=== PATIENT | male | born 1955 | race Caucasian/White ===

== ENCOUNTER → 2017-02-16 | Outpatient (CLI) | payer BC, OTHER ==
[2017-02-16 15:30] LABS: Blood Urea Nitrogen 17 mg/dL (9-20); Non-African American GFR(MDRD) >60 (>60 ml/min/1.73 sqM)
--- NOTE | 2017-02-16 17:48 | CT ---
EXAMINATION TYPE: CT abdomen pelvis wo/w con DATE OF EXAM: 02/16/2017 4:53 PM COMPARISON: NONE HISTORY: Episode of hematuria [address] DLP: 6866.5 mGycm Automated exposure control for dose reduction was used. TECHNIQUE: Helical acquisition of images was performed from the lung bases through the pelvis. CONTRAST: Performed with Oral Contrast and with IV Contrast, patient injected with 100 mL of Omnipaque 300. FINDINGS: LUNG BASES: There is a lung nodule at the left lung base measuring 12 mm. Is in the posterior costoph renic sulcus. LIVER/GB: Probable calcified gallstone in the gallbladder. The liver is unremarkable. PANCREAS: No significant abnormality is seen. SPLEEN: No significant abnormality is seen. ADRENALS: No significant abnormality is seen. KIDNEYS: Nonobstructive calculi present at the lower pole of the left kidney, larger measures 11 mm, smaller is approximately 3 mm. No hydronephrosis bilaterally. Suspect a right ureteral calculus is pr esent measuring 9 mm.. Punctate calcification at the lower pole of the right kidney measures only 1 t o 2 mm FREE AIR: No free air is visualized. RETROPERITONEAL ADENOPATHY: None visualized REPRODUCTIVE ORGANS: Prostate calcifications are present. URINARY BLADDER: No significant abnormality is seen. PELVIC ADENOPATHY: None visualized. OSSEOUS STRUCTURES: Degenerative disc changes, facet arthropathy and the visualized lumbar spine. BOWEL: Diverticular changes associated with the sigmoid colon. OTHER: Abdominal aorta measures 3.4 cm distally. IMPRESSION: THERE IS A MID TO DISTAL RIGHT URETERAL CALCULUS HOWEVER NO DEFINITE HYDRONEPHROSIS. BILATERAL NEPHRO LITHIASIS. ABDOMINAL AORTIC ANEURYSM, DIVERTICULOSIS. ADDITIONAL FINDINGS ABOVE.
== END | disposition home or self-care (01) ==
LOC: RADCTMAIN 14:30
PROVIDERS: ATTEND Urology
DX: N20.1 Calculus of ureter (principal); N20.0 Calculus of kidney; I71.4 Abdominal aortic aneurysm, without rupture; K57.30 Diverticulosis of large intestine without perforation or abscess without bleeding
CPT/HCPCS: 82565; 84520; 74178; 36415; Q9967

== ENCOUNTER → 2017-02-20 | Outpatient (CLI) | payer BC, OTHER ==
--- NOTE | 2017-02-20 12:43 | XR ---
Abdomen HISTORY: Hematuria Frontal view of the abdomen on [address] scan February 2017 Calcification present in the lower pole of the left kidney measures approximately 1 cm in diameter sm aller immediately adjacent calcification measures approximately 5 mm. Lower pole calculus on the righ t is not seen with certainty. Extensive hypertrophic change present in the visualized spine. Lung bas es not included on exam. IMPRESSION: Nephrolithiasis as described lower pole left kidney.
== END | disposition home or self-care (01) ==
LOC: RADXRMAIN 11:00
PROVIDERS: ATTEND Urology
DX: N20.0 Calculus of kidney (principal)
CPT/HCPCS: 74000

== ENCOUNTER → 2017-03-07 | Outpatient (CLI) | payer BC, OTHER ==
--- NOTE | 2017-03-07 13:03 | US ---
EXAMINATION TYPE: US venous doppler duplex LE RT DATE OF EXAM: 03/07/2017 12:44 PM COMPARISON: NONE CLINICAL HISTORY: RLE R60.0 Right leg edema. SIDE PERFORMED: Right TECHNIQUE: The lower extremity deep venous system is examined utilizing real time linear array sonog alix with graded compression, doppler sonography and color-flow sonography. VESSELS IMAGED: External Iliac Vein (EIV) Common Femoral Vein Deep Femoral Vein Greater Saphenous Vein * Femoral Vein Popliteal Vein Small Saphenous Vein * Proximal Calf Veins (* superficial vessels) Right Leg: Grayscale imaging shows some minimal low-level internal echoes within the anterior aspect of the femoral vein. Vein is partially compressible however there is color flow present. Preliminary report left for DrTl's office when they reopen from lunch. Grayscale, color doppler, spectral doppler imaging performed of the deep veins of the lower extremit ies. There is normal flow, compressibility, vascular waveforms bilaterally. IMPRESSION: Findings could be due to chronic deep venous thrombosis rather than acute deep venous thr ombosis. Follow-up as indicated.
== END ==
LOC: RADUSWWP 12:15
PROVIDERS: ATTEND Family Medicine
DX: R60.0 Localized edema (principal)
CPT/HCPCS: 85610

== ENCOUNTER 2017-03-17 12:22 | Inpatient (IN) | payer BC, OTHER ==
[2017-03-17] MEDS ORDERED: SODIUM CHLORIDE 0.9% 1,000 ML IV STA (14:22)
--- NOTE | 2017-03-17 14:27 | ED ---
Eye Problem HPI - General Source: patient, family, RN notes reviewed Mode of arrival: ambulatory Limitations: no limitations <Luci Loco - Last Filed: 03/17/17 19:46> <Nguyễn Looney - Last Filed: 03/17/17 20:00> - General Chief complaint: Eye Problems Stated complaint: Blurred Vision Time Seen by Provider: 03/17/17 13:47 - History of Present Illness Initial comments: Patient is a 65-year-old male presents to the emergency room for multiple complaints. Patient states that he was recently diagnosed with kidney stones. Patient states he was recently placed on Flomax and Zanoni on Monday. Patient states he woke up this morning with blurriness of vision. Patient states it feels like his eyes are dilated. Patient states he's also been slightly dizzy and short of breath. Patient denies chest pain. Patient states he is not feeling himself. Patient also states that his sugars have been very high lately. Patient does state he is diabetic and takes insulin and metformin. Patient denies nausea or vomiting. Patient denies recent change in eyeglasses or contact prescription. Patient denies headache. Patient states he takes Coumadin. patient states his last INR level was 4.2 on 03/10/17. Patient states he was advised to discontinue Coumadin for 3 days and to begin taking 6 mg daily. Patient states he began taking Coumadin again 2 days ago. (Luci Lcoo) - Related Data Home Medications Medication Instructions Recorded Confirmed Furosemide [Lasix] 80 mg PO BID 06/15/16 03/17/17 Gabapentin 400 mg PO BID 06/15/16 03/17/17 Insulin Regular, Human [NovoLIN R] See Protocol SQ TID 06/15/16 03/17/17 Lisinopril 5 mg PO DAILY 06/15/16 03/17/17 Metoprolol Tartrate [Lopressor] 100 mg PO BID 06/15/16 03/17/17 Multivitamins, Thera [Multivitamin 1 tab PO DAILY 06/15/16 03/17/17 (formulary)] Potassium Chloride [Klor-Con 20] 20 meq PO DAILY 06/15/16 03/17/17 Simvastatin 10 mg PO HS 06/15/16 03/17/17 Warfarin Sodium [Coumadin] 6 mg PO DAILY 06/15/16 03/17/17 metFORMIN HCL 1,000 mg PO BID 06/15/16 03/17/17 Cinnamon Bark [Cinnamon] 500 mg PO BID 03/17/17 03/17/17 Hydrocodone/Acetaminophen [Zanoni 1 tab PO Q6H PRN 03/17/17 03/17/17 10-325 Tablet] Insulin Glargine [Lantus] See Protocol SQ HS 03/17/17 03/17/17 Tamsulosin HCl [Flomax] 0.4 mg PO HS 03/17/17 03/17/17 Allergies Allergy/AdvReac Type Severity Reaction Status Date / Time No Known Allergies Allergy Verified 03/17/17 14:14 Review of Systems ROS Other: All systems not noted in ROS Statement are negative. <Luci Loco - Last Filed: 03/17/17 19:46> ROS Other: All systems not noted in ROS Statement are negative. <Nguyễn Looney - Last Filed: 03/17/17 20:00> ROS Statement: Those systems with pertinent positive or pertinent negative responses have been documented in the HPI. Past Medical History Past Medical History: Heart Failure, Diabetes Mellitus, Deep Vein Thrombosis ( DVT) Additional Past Medical History / Comment(s): IDDM type II, DVT R lower extremity, irregular heart rhythm, neuropathy bilateral legs/feet. kidney stones History of Any Multi-Drug Resistant Organisms: None Reported Past Surgical History: Orthopedic Surgery, Tonsillectomy Additional Past Surgical History / Comment(s): L knee arthroscopy, amputation 2nd and 3rd toe, L foot 06/22/16 Past Anesthesia/Blood Transfusion Reactions: No Reported Reaction Past Psychological History: No Psychological Hx Reported Additional Psychological History / Comment(s): Pt resides alone. He is independent. Smoking Status: Former smoker Past Alcohol Use History: Occasional Additional Past Alcohol Use History / Comment(s): Pt states he smoked from 1970- 1998 and was a 2-3 ppd smoker. HE states he drinks alcohol on occasion. Past Drug Use History: None Reported - Past Family History Father Family Medical History: COPD Additional Family Medical History / Comment(s): Father of emphysema at the age of 57 yrs. Mother Family Medical History: Diabetes Mellitus Additional Family Medical History / Comment(s): Mother at the age of 66 yrs. <Luci Loco - Last Filed: 03/17/17 19:46> General Exam Limitations: no limitations General appearance: alert, in no apparent distress Head exam: Present: atraumatic, normocephalic, normal inspection Eye exam: Present: normal appearance, PERRL, EOMI Pupils: Present: normal accommodation ENT exam: Present: normal exam Neck exam: Present: normal inspection Respiratory exam: Present: normal lung sounds bilaterally. Absent: respiratory distress Cardiovascular Exam: Present: regular rate, normal rhythm, normal heart sounds GI/Abdominal exam: Present: soft, normal bowel sounds. Absent: distended, tenderness, guarding, rebound, rigid Extremities exam: Present: normal inspection Back exam: Present: normal inspection Neurological exam: Present: alert, oriented X3, CN II-XII intact, normal gait Psychiatric exam: Present: normal affect, normal mood Skin exam: Present: warm, dry, intact, normal color. Absent: rash <Luci Loco - Last Filed: 03/17/17 19:46> <Nguyễn Looney - Last Filed: 03/17/17 20:00> - General Exam Comments Initial Comments: Sitting exam room, no acute distress. (Luci Loco) Course <Luci Loco - Last Filed: 03/17/17 19:46> <Nguyễn Looney - Last Filed: 03/17/17 20:00> Vital Signs 03/17/17 03/17/17 03/17/17 12:29 15:57 16:15 Temperature 97.9 F 95.9 F L Pulse Rate 63 97 96 Respiratory 18 15 17 Rate Blood Pressure 104/57 96/52 100/62 O2 Sat by Pulse 95 100 Oximetry 03/17/17 18:27 Temperature 96.3 F L Pulse Rate 106 H Respiratory 17 Rate Blood Pressure 105/59 O2 Sat by Pulse Oximetry - Reevaluation(s) Reevaluation #1: 03/17/17 19:59 I did personally do a [id number] evaluation the patient and did discuss the findings with him and his . Patient does demonstrate evidence of UTI. He did have a period of apparent hypotension. He does also demonstrate elevated INR. Patient be admitted for IV fluids and treatment. I did discuss the case with Dr. Ray (Nguyễn Looney) Medical Decision Making - Lab Data Result diagrams: 03/17/17 14:49 03/17/17 14:49 - Radiology Data Radiology results: report reviewed, image reviewed <Luci Loco - Last Filed: 03/17/17 19:46> - Lab Data Result diagrams: 03/17/17 14:49 03/17/17 14:49 <Nguyễn Looney - Last Filed: 03/17/17 20:00> - Medical Decision Making patient is a 61-year-old male presents emergency room for evaluation of multiple complaints. Patient's BUN/creatinine slightly more elevated from normal. Patient's INR 7.6. Patient's WBC slightly elevated. Patient's urinalysis also suspicious for urinary tract infection. ultrasound kidney show no evidence of hydronephrosis. Case discussed with Dr. Looney. Dr. Looney also evaluated patient. Dr. Looney discussed case with Dr. Ray who agreed to admit patient. Will hold Coumadin. (Luci Lcoo) - Lab Data Lab Results 03/17/17 03/17/17 03/17/17 Range/Units 14:49 14:49 14:49 WBC 17.0 H (3.8-10.6) k/uL RBC 3.96 L (4.30-5.90) m/uL Hgb 11.5 L (13.0-17.5) gm/dL Hct 36.1 L (39.0-53.0) % MCV 91.0 (80.0-100.0) fL MCH 28.9 (25.0-35.0) pg MCHC 31.7 (31.0-37.0) g/dL RDW 13.5 (11.5-15.5) % Plt Count 234 (150-450) k/uL Neutrophils % 90 % Lymphocytes % 5 % Monocytes % 3 % Eosinophils % 0 % Basophils % 0 % Neutrophils # 15.3 H (1.3-7.7) k/uL Lymphocytes # 0.8 L (1.0-4.8) k/uL Monocytes # 0.5 (0-1.0) k/uL Eosinophils # 0.0 (0-0.7) k/uL Basophils # 0.1 (0-0.2) k/uL Hypochromasia Slight PT 78.7 H (9.0-12.0) sec INR 7.6 H* (<1.1) APTT 54.0 H (22.0-30.0) sec Sodium 135 L (137-145) mmol/L Potassium 4.8 (3.5-5.1) mmol/L Chloride 98 (98-107) mmol/L Carbon Dioxide 25 (22-30) mmol/L Anion Gap 12 mmol/L BUN 45 H (9-20) mg/dL Creatinine 2.00 H (0.66-1.25) mg/dL Est GFR (MDRD) Af Amer 41 (>60 ml/min/1.73 sqM) Est GFR (MDRD) Non-Af 34 (>60 ml/min/1.73 sqM) Glucose 286 H (74-99) mg/dL POC Glucose (mg/dL) (75-99) mg/dL POC Glu Section Cutter ID Plasma Lactic Acid Joel (0.7-2.0) mmol/L Calcium 9.2 (8.4-10.2) mg/dL Magnesium 1.9 (1.6-2.3) mg/dL Total Bilirubin 0.6 (0.2-1.3) mg/dL AST 51 (17-59) U/L ALT 104 H (21-72) U/L Alkaline Phosphatase 119 (38-126) U/L Total Creatine Kinase (55-170) U/L CK-MB (CK-2) (0.0-2.4) ng/mL CK-MB (CK-2) Rel Index Troponin I (0.000-0.034) ng/mL Total Protein 7.4 (6.3-8.2) g/dL Albumin 3.4 L (3.5-5.0) g/dL Urine Color Urine Appearance (Clear) Urine pH (5.0-8.0) Ur Specific [place] (1.001-1.035) Urine Protein (Negative) Urine Glucose (UA) (Negative) Urine Ketones (Negative) Urine Blood (Negative) Urine Nitrite (Negative) Urine Bilirubin (Negative) Urine Urobilinogen (<2.0) mg/dL Ur Leukocyte Esterase (Negative) Urine RBC (0-5) /hpf Urine WBC (0-5) /hpf Urine WBC Clumps (None) /hpf Urine Bacteria (None) /hpf Hyaline Casts (0-2) /lpf Urine Mucus (None) /hpf 03/17/17 03/17/17 03/17/17 Range/Units 14:49 15:55 16:15 WBC (3.8-10.6) k/uL RBC (4.30-5.90) m/uL Hgb (13.0-17.5) gm/dL Hct (39.0-53.0) % MCV (80.0-100.0) fL MCH (25.0-35.0) pg MCHC (31.0-37.0) g/dL RDW (11.5-15.5) % Plt Count (150-450) k/uL Neutrophils % % Lymphocytes % % Monocytes % % Eosinophils % % Basophils % % Neutrophils # (1.3-7.7) k/uL Lymphocytes # (1.0-4.8) k/uL Monocytes # (0-1.0) k/uL Eosinophils # (0-0.7) k/uL Basophils # (0-0.2) k/uL Hypochromasia PT (9.0-12.0) sec INR (<1.1) APTT (22.0-30.0) sec Sodium (137-145) mmol/L Potassium (3.5-5.1) mmol/L Chloride (98-107) mmol/L Carbon Dioxide (22-30) mmol/L Anion Gap mmol/L BUN (9-20) mg/dL Creatinine (0.66-1.25) mg/dL Est GFR (MDRD) Af Amer (>60 ml/min/1.73 sqM) Est GFR (MDRD) Non-Af (>60 ml/min/1.73 sqM) Glucose (74-99) mg/dL POC Glucose (mg/dL) 297 H (75-99) mg/dL POC Glu Section Cutter ID Bowling, Mirela Plasma Lactic Acid Joel (0.7-2.0) mmol/L Calcium (8.4-10.2) mg/dL Magnesium (1.6-2.3) mg/dL Total Bilirubin (0.2-1.3) mg/dL AST (17-59) U/L ALT (21-72) U/L Alkaline Phosphatase (38-126) U/L Total Creatine Kinase 41 L (55-170) U/L CK-MB (CK-2) 1.6 (0.0-2.4) ng/mL CK-MB (CK-2) Rel Index 3.9 Troponin I <0.012 (0.000-0.034) ng/mL Total Protein (6.3-8.2) g/dL Albumin (3.5-5.0) g/dL Urine Color Yellow Urine Appearance Cloudy (Clear) Urine pH 5.5 (5.0-8.0) Ur Specific [place] 1.013 (1.001-1.035) Urine Protein 1+ H (Negative) Urine Glucose (UA) Negative (Negative) Urine Ketones Negative (Negative) Urine Blood Moderate H (Negative) Urine Nitrite Negative (Negative) Urine Bilirubin Negative (Negative) Urine Urobilinogen 2.0 (<2.0) mg/dL Ur Leukocyte Esterase Large H (Negative) Urine RBC 13 H (0-5) /hpf Urine WBC >182 H (0-5) /hpf Urine WBC Clumps Many H (None) /hpf Urine Bacteria Many H (None) /hpf Hyaline Casts 6 H (0-2) /lpf Urine Mucus Occasional H (None) /hpf 03/17/17 Range/Units 18:43 WBC (3.8-10.6) k/uL RBC (4.30-5.90) m/uL Hgb (13.0-17.5) gm/dL Hct (39.0-53.0) % MCV (80.0-100.0) fL MCH (25.0-35.0) pg MCHC (31.0-37.0) g/dL RDW (11.5-15.5) % Plt Count (150-450) k/uL Neutrophils % % Lymphocytes % % Monocytes % % Eosinophils % % Basophils % % Neutrophils # (1.3-7.7) k/uL Lymphocytes # (1.0-4.8) k/uL Monocytes # (0-1.0) k/uL Eosinophils # (0-0.7) k/uL Basophils # (0-0.2) k/uL Hypochromasia PT (9.0-12.0) sec INR (<1.1) APTT (22.0-30.0) sec Sodium (137-145) mmol/L Potassium (3.5-5.1) mmol/L Chloride (98-107) mmol/L Carbon Dioxide (22-30) mmol/L Anion Gap mmol/L BUN (9-20) mg/dL Creatinine (0.66-1.25) mg/dL Est GFR (MDRD) Af Amer (>60 ml/min/1.73 sqM) Est GFR (MDRD) Non-Af (>60 ml/min/1.73 sqM) Glucose (74-99) mg/dL POC Glucose (mg/dL) (75-99) mg/dL POC Glu Section Cutter ID Plasma Lactic Acid Joel 1.2 (0.7-2.0) mmol/L Calcium (8.4-10.2) mg/dL Magnesium (1.6-2.3) mg/dL Total Bilirubin (0.2-1.3) mg/dL AST (17-59) U/L ALT (21-72) U/L Alkaline Phosphatase (38-126) U/L Total Creatine Kinase (55-170) U/L CK-MB (CK-2) (0.0-2.4) ng/mL CK-MB (CK-2) Rel Index Troponin I (0.000-0.034) ng/mL Total Protein (6.3-8.2) g/dL Albumin (3.5-5.0) g/dL Urine Color Urine Appearance (Clear) Urine pH (5.0-8.0) Ur Specific [place] (1.001-1.035) Urine Protein (Negative) Urine Glucose (UA) (Negative) Urine Ketones (Negative) Urine Blood (Negative) Urine Nitrite (Negative) Urine Bilirubin (Negative) Urine Urobilinogen (<2.0) mg/dL Ur Leukocyte Esterase (Negative) Urine RBC (0-5) /hpf Urine WBC (0-5) /hpf Urine WBC Clumps (None) /hpf Urine Bacteria (None) /hpf Hyaline Casts (0-2) /lpf Urine Mucus (None) /hpf 03/17/17 18:29 atrial fibrillation, ventricular rate 90 bpm, QRS duration 94 ms, QT/QTC 368/ 450 ms (Luci Loco) Disposition Decision Date: 03/17/17 <Luci Loco - Last Filed: 03/17/17 19:46> <Nguyễn Looney - Last Filed: 03/17/17 20:00> Clinical Impression: Elevated INR, Urinary tract infection, Acute renal failure Disposition: ADMITTED IP TO THIS HOSP Condition: Stable Referrals: Archie Garrison DO [Primary Care Provider] - 1-2 days
[2017-03-17 14:59] LABS: Basophils # (A) 0.1 k/uL (0-0.2); Basophils % (A) 0 %; CH 28.9; CHCM 31.9; Eosinophils % (A) 0 %; HCT 36.1 % (39.0-53.0); HGB 11.5 gm/dL (13.0-17.5); Hypochromasia Slight; Luc % (Auto) 2; Lymphocytes # (A) 0.8 k/uL (1.0-4.8); Lymphocytes % (A) 5 %; MCH 28.9 pg (25.0-35.0); MCHC 31.7 g/dL (31.0-37.0); Mean Platelet Volume 7.8; Monocytes # (A) 0.5 k/uL (0-1.0); Monocytes % (A) 3 %; Neutrophils # (A) 15.3 k/uL (1.3-7.7); Neutrophils % (A) 90 %; RBC 3.96 m/uL (4.30-5.90); RDW 13.5 % (11.5-15.5); WBC (Perox) 16.75
[2017-03-17 15:15] LABS: Creatine Kinase 41 U/L (55-170); Prothrombin Time 78.7 sec (9.0-12.0)
--- NOTE | 2017-03-17 15:17 | CT ---
EXAMINATION TYPE: CT brain wo con DATE OF EXAM: 03/17/2017 COMPARISON: NONE HISTORY: Blurred vision today. CT DLP: 1207.[address] of the brain was performed. The ventricles, basal cisterns and sulci overlying the cerebral convexities demonstrate mild enlargem ent. There is no evidence for intracranial hemorrhage or sulcal effacement. There is decreased attenuation about the periventricular white matter and deep white matter of both c erebral hemispheres, compatible with chronic small vessel ischemia. Differential diagnosis does inclu de demyelination. Extra-axial CSF prominence adjacent to the right occipital lobe is felt to reflect an arachnoid cyst measuring 3.1 x 1.6 cm. Mild mass effect upon the right occipital lobe is noted. Osseous calvarium is intact. If symptoms persist consider MRI. IMPRESSION: 1. Age related atrophic and chronic small vessel ischemic change without acute intracranial process s een at this time. 2. Right occipital arachnoid cyst.
[2017-03-17 15:18] LABS: INR 7.6 (<1.1)
[2017-03-17 15:27] LABS: Creatine Kinase MB 1.6 ng/mL (0.0-2.4); Troponin I <0.012 ng/mL (0.000-0.034)
[2017-03-17 15:54] LABS: Calcium 9.2 mg/dL (8.4-10.2); Magnesium 1.9 mg/dL (1.6-2.3); Potassium 4.8 mmol/L (3.5-5.1); Total Bilirubin 0.6 mg/dL (0.2-1.3); Total Protein 7.4 g/dL (6.3-8.2)
[2017-03-17 16:07] LABS: Glucose,Whole Blood 297 mg/dL (75-99)
[2017-03-17 16:31] LABS: Appearance,Urine Cloudy (Clear); Bacteria,Urine Many /hpf; Bilirubin,Urine Negative (Negative); Glucose,Urine (UA) Negative (Negative); Ketones,Urine Negative (Negative); Leukocyte Esterase,Urine Large (Negative); Mucus,Urine Occasional /hpf; Nitrite,Urine Negative (Negative); PH, Urine 5.5 (5.0-8.0); Particle Count 23799; Protein,Urine 1+ (Negative); RBC,Urine 13 /hpf (0-5); Specific Gravity,Urine 1.013 (1.001-1.035); UA Billing (MACRO vs. MICRO) MICRO; WBC,Urine >182 /hpf (0-5)
[2017-03-17] MEDS ORDERED: SODIUM CHLORIDE 0.9% 1,000 ML IV ONE (17:06)
--- NOTE | 2017-03-17 17:53 | US ---
EXAMINATION TYPE: US kidneys/renal and bladder DATE OF EXAM: 03/17/2017 COMPARISON: NONE CLINICAL HISTORY: Pain. Lt Flank EXAM MEASUREMENTS: Right Kidney: 12.9 x 6.4 x 6.8 cm Left Kidney: 11.5 x 6.3 x 7.4 cm Right Kidney: wnl Left Kidney: 1.6 x 1.4cm cluster of stones inferior pole . No hydronephrosis is present. Bladder: not seen, pt voided IMPRESSION: 1. Nonobstructing stones at the inferior pole left kidney without hydronephrosis.
[2017-03-17] MEDS ORDERED: ONDANSETRON 4 MG/2 ML VIAL IVP PRN (19:42)
[2017-03-17] MEDS ORDERED: NALOXONE 0.4 MG/ML 1 ML VIAL IV PRN (19:42)
[2017-03-17] MEDS ORDERED: LEVOFLOXACIN 750MG-D5W PMX 750 MG in DEXTROSE/WATER 1 150ML.BAG IVPB STA (19:51)
[2017-03-17] MEDS: SODIUM CHLORIDE 0.9% 1,000 ML IV SCH (20:32)
[2017-03-17 23:16] VITALS: BMI 43.4
[2017-03-17 23:22] LABS: Glucose,Whole Blood 264 mg/dL (75-99)
[2017-03-17] MEDS: INSULIN LISPRO (humaLOG) 300 UNIT/3 ML VIAL SQ SCH (23:25)
[2017-03-17] MEDS: MORPHINE SULFATE 4 MG/ML SYRINGE IV PRN (23:34)
[2017-03-18 00:47] LABS: INR 8.8 (<1.1)
[2017-03-18] MEDS ORDERED: PHYTONADIONE ORAL 5 MG/5 ML ORAL.SYRG PO STA (01:05)
[2017-03-18] MEDS ORDERED: SODIUM CHLORIDE 0.9% 500 ML IV ONE (01:06)
[2017-03-18] MEDS: METOPROLOL TARTRATE 50 MG TAB PO SCH ×3 (01:17→18:56)
[2017-03-18] MEDS: MORPHINE SULFATE 4 MG/ML SYRINGE IV PRN ×3 (03:17→15:48)
[2017-03-18 05:53] LABS: Glucose,Whole Blood 163 mg/dL (75-99)
[2017-03-18] MEDS: SODIUM CHLORIDE 0.9% 1,000 ML IV SCH ×2 (06:16→12:54)
[2017-03-18] MEDS: INSULIN LISPRO (humaLOG) 300 UNIT/3 ML VIAL SQ SCH ×4 (06:18→21:40)
[2017-03-18 07:10] LABS: Basophils % (A) 0 %; CH 28.7; CHCM 31.9; Eosinophils % (A) 0 %; HCT 31.1 % (39.0-53.0); HDW 2.48; Luc # (Auto) 0.31; Luc % (Auto) 3; Lymphocytes # (A) 0.7 k/uL (1.0-4.8); Lymphocytes % (A) 7 %; MCH 28.6 pg (25.0-35.0); MCHC 31.6 g/dL (31.0-37.0); MCV 90.3 fL (80.0-100.0); Mean Platelet Volume 7.6; Monocytes # (A) 0.5 k/uL (0-1.0); Monocytes % (A) 4 %; Neutrophils # (A) 9.1 k/uL (1.3-7.7); Neutrophils % (A) 86 %; RBC 3.45 m/uL (4.30-5.90); RDW 13.4 % (11.5-15.5); WBC 10.7 k/uL (3.8-10.6)
[2017-03-18 07:23] LABS: HGB 9.8 gm/dL (13.0-17.5)
[2017-03-18 07:32] LABS: ALT 74 U/L (21-72); AST 39 U/L (17-59); Alkaline Phosphatase 82 U/L (38-126); Anion Gap 6 mmol/L; Blood Urea Nitrogen 41 mg/dL (9-20); Carbon Dioxide 28 mmol/L (22-30); Chloride 103 mmol/L (98-107); Glucose 161 mg/dL (74-99); Non-African American GFR(MDRD) 57 (>60 ml/min/1.73 sqM); Potassium 4.4 mmol/L (3.5-5.1); Sodium 137 mmol/L (137-145); Total Bilirubin 0.7 mg/dL (0.2-1.3)
[2017-03-18 07:33] LABS: Prothrombin Time 70.8 sec (9.0-12.0)
[2017-03-18 08:11] LABS: INR 6.9 (<1.1)
[2017-03-18 11:50] LABS: Glucose,Whole Blood 306 mg/dL (75-99)
[2017-03-18 12:35] LABS: Hemoglobin A1C 8.8 % (4.2-6.1)
[2017-03-18] MEDS: ACETAMINOPHEN TAB 325 MG TAB PO PRN ×2 (13:00→18:00)
[2017-03-18] MEDS: CEFEPIME 1 GM in SODIUM CHLORIDE 0.9% 50 ML IVPB SCH (13:31)
[2017-03-18 16:54] LABS: Glucose,Whole Blood 271 mg/dL (75-99)
[2017-03-18] MEDS ORDERED: SODIUM CHLORIDE 0.9% 1,000 ML IV ONE (17:46)
[2017-03-18 21:03] LABS: Glucose,Whole Blood 220 mg/dL (75-99)
[2017-03-18] MEDS: INSULIN GLARGINE 100 UNIT/ML 10 ML VIAL SQ SCH (21:41)
--- NOTE | 2017-03-18 21:56 | HP ---
DATE OF ADMISSION: 03/17/2017 REASON FOR ADMISSION: Left-sided flank pain and chills. HISTORY OF PRESENT ILLNESS: This is a 61-year-old gentleman comes in to the hospital with complaints of chills and generalized weakness. Patient stated that he was recently diagnosed with renal stones by Dr. Cardoza. Patient was started on Flomax and given pain medication. Patient states that he is a diabetic and this is the first instance of patient having these symptoms. Patient was admitted to the hospital and was noted to have some signs concerning for an infectious etiology, hence was started on antibiotics empirically. The patient was also noted to have supratherapeutic INR. The patient takes Coumadin for his atrial fibrillation. Patient was noted to have an INR around 8.2. Patient was given a dose of Levaquin in the emergency room and was admitted to the hospital. This a.m. patient was noted to have bacteremia with gram-negative rods. I was informed regarding that. The patient was started on cefepime at that time. During my evaluation, patient states it to be doing somewhat better, was eating his lunch, does state to have some flank pain radiating to his groin. No hematuria is reported. States to have intermittent chills. No nausea. No vomiting, headaches, blurry vision, chest pain, abdominal pain, diarrhea, or constipation at this time. Fourteen-point review of system was done none pertinent that what was mentioned above. Home medications include: 1. Lasix. 2. Gabapentin. 3. Novolin-R. 4. Lisinopril. 5. Lopressor. 6. Multivitamin. 7. Potassium chloride. 8. Simvastatin. 9. Coumadin. 10. Metformin. 11. [employer]. 12. Lantus. 13. Flomax. ALLERGIES: No known drug allergies. Home medications were reviewed and appropriately reconciled. Past medical history includes: History of heart failure, diabetes mellitus. DVT, remote history of atrial fibrillation, renal stones. Past surgical history includes orthopedic surgery, tonsillectomy. SOCIAL HISTORY: He was a remote smoker, social use of alcohol. Denies illicit drug use. FAMILY HISTORY: Not pertinent to the current admission. GENERAL APPEARANCE: Alert, oriented x3. Does not appear to be in distress. HEAD: Atraumatic, normocephalic. Pupils equal, round, and react light and accommodation. LUNGS: Good air movement. Clear to auscultation. No rhonchi, wheezing or crackles. HEART: S1, S2 heard. Appears to be in regular rhythm. No murmurs appreciated. ABDOMEN: Soft. There is some left-sided flank tenderness. No guarding or rigidity noted. NEURO EXAM: No focal motor or sensory deficits noted. Cranial nerves II through XII grossly intact. No lower extremity edema is noted. VITAL SIGNS: Temperature is 97.9, pulse rate of 63, respiratory rate 18, blood pressure 104/57, did have a T-max of 101.5 with a heart rate around 133. Laboratory data include hemoglobin 9.1, hematocrit 31.1, white count of 10.7, platelets of 186, INR of 6.9. Sodium 137, potassium 4.1, chloride 103, bicarb 28, BUN 41, creatinine 1.28, with an initial creatinine of 2. A1c is 8.8. ASSESSMENT AND PLAN: 1. Sepsis likely secondary to urinary tract infection complicated with renal stones which was noted on the abdominal ultrasound with 1.6 to 1.4 cm cluster of stones. No hydronephrosis is noted. 2. Supratherapeutic INR with Coumadin coagulopathy. 3. Acute kidney injury with likely prerenal azotemia. 4. Diabetes mellitus, uncontrolled. 5. History of hypertension. 6. Obesity. 7. Chronic atrial fibrillation on anticoagulation. 8. History of deep venous thrombosis. 9. Remote history of congestive heart failure, currently stable. 10. Previous history of diabetic foot ulcer. 11. Anemia of chronic disease. PLAN: Continue therapy with cefepime 1 gram q.12 hours. A dose of vitamin K 2.5 mg p.o. was given. No signs of bleeding are noted. Continue ongoing care. We will have infectious diseases due to bacteremia and Dr. Cardoza on consult due to the amount of stones in the infectious etiology. The patient may benefit from a J-tube placement for drainage in order for the infection to be cleared. We will repeat PT-INR in the a.m. Medications were appropriately reconciled. We will continue telemetry monitoring. Patient will be restarted on home dose of will be restarted on Lantus at 20 units as ( ) insulin. Will follow.
[2017-03-18 22:41] LABS: Appearance,Urine Cloudy (Clear); Bacteria,Urine Rare /hpf; Bilirubin,Urine Negative (Negative); Glucose,Urine (UA) Trace (Negative); Ketones,Urine Negative (Negative); Leukocyte Esterase,Urine Large (Negative); Mucus,Urine Rare /hpf; Nitrite,Urine Negative (Negative); Particle Count 3935; Protein,Urine Trace (Negative); RBC,Urine 3 /hpf (0-5); Specific Gravity,Urine 1.012 (1.001-1.035); Squamous Epithelial Cell,Urine 3 /hpf (0-4); UA Billing (MACRO vs. MICRO) MICRO; Urobilinogen,Urine <2.0 mg/dL (<2.0); WBC,Urine 73 /hpf (0-5)
[2017-03-19] MEDS: MORPHINE SULFATE 4 MG/ML SYRINGE IV PRN ×4 (02:08→17:38)
[2017-03-19 05:40] LABS: Glucose,Whole Blood 205 mg/dL (75-99)
[2017-03-19] MEDS: SODIUM CHLORIDE 0.9% 1,000 ML IV SCH ×3 (05:54→21:07)
[2017-03-19] MEDS: INSULIN LISPRO (humaLOG) 300 UNIT/3 ML VIAL SQ SCH ×4 (06:34→21:07)
[2017-03-19 06:35] LABS: Basophils % (A) 0 %; CHCM 30.7; Eosinophils # (A) 0.1 k/uL (0-0.7); Eosinophils % (A) 1 %; HCT 29.1 % (39.0-53.0); HDW 2.55; HGB 9.3 gm/dL (13.0-17.5); Hypochromasia Moderate; Luc # (Auto) 0.36; Luc % (Auto) 4; Lymphocytes # (A) 0.7 k/uL (1.0-4.8); Lymphocytes % (A) 7 %; MCH 29.2 pg (25.0-35.0); MCHC 31.9 g/dL (31.0-37.0); MCV 91.7 fL (80.0-100.0); Mean Platelet Volume 7.7; Monocytes # (A) 0.4 k/uL (0-1.0); Monocytes % (A) 4 %; Neutrophils # (A) 7.9 k/uL (1.3-7.7); Neutrophils % (A) 84 %; RBC 3.17 m/uL (4.30-5.90); RDW 13.6 % (11.5-15.5); WBC 9.4 k/uL (3.8-10.6); WBC (Perox) 9.05
[2017-03-19 06:46] LABS: INR 1.8 (<1.1); Prothrombin Time 17.8 sec (9.0-12.0)
[2017-03-19 06:51] LABS: ALT 62 U/L (21-72); AST 43 U/L (17-59); Alkaline Phosphatase 72 U/L (38-126); Anion Gap 9 mmol/L; Blood Urea Nitrogen 29 mg/dL (9-20); Calcium 8.2 mg/dL (8.4-10.2); Carbon Dioxide 22 mmol/L (22-30); Chloride 108 mmol/L (98-107); Glucose 196 mg/dL (74-99); Magnesium 1.8 mg/dL (1.6-2.3); Non-African American GFR(MDRD) >60 (>60 ml/min/1.73 sqM); Potassium 4.6 mmol/L (3.5-5.1); Sodium 139 mmol/L (137-145); Total Bilirubin 0.9 mg/dL (0.2-1.3); Total Protein 5.7 g/dL (6.3-8.2)
[2017-03-19] MEDS: CEFEPIME 1 GM in SODIUM CHLORIDE 0.9% 50 ML IVPB SCH ×2 (07:53→20:02)
[2017-03-19] MEDS: METOPROLOL TARTRATE 50 MG TAB PO SCH ×2 (07:54→17:29)
[2017-03-19 11:49] LABS: Glucose,Whole Blood 275 mg/dL (75-99)
[2017-03-19 13:25] LABS: Glucose,Whole Blood 321 mg/dL (75-99)
--- NOTE | 2017-03-19 13:40 | CONS ---
DATE OF CONSULTATION: 03/18/2017. REASON FOR CONSULTATION: Urinary tract infection and kidney stones. The patient is a 61-year-old male admitted through the emergency room on 03/17 for evaluation of weakness and chills. The patient had a temperature of 101.2 on admission. His white blood count was 17,000. His BUN was 45 and his creatinine was 2.0. Urinalysis at that time showed 182 white cells, 13 red cells and many bacteria. Urine was negative for nitrite. Patient was suspected to have sepsis from a urinary tract infection and was started on cefepime. He has become afebrile and no longer is experiencing chills. A renal ultrasound showed a nonobstructive calculi in the lower pole of the left kidney. Urologic consultation was requested for further evaluation. The patient has a history of gross hematuria and was seen by Dr. Cardoza on 02/09. A CT scan prior to that time had identified nonobstructive calculi in the lower pole of the left kidney. The largest calculus measured approximately 9 x 10 mm in size, two other calculi were present in the lower pole. One of them was punctate and the other measured approximately 3.5 x 4.5 mm. A punctate calculus was noted in the lower pole of the left kidney. The patient underwent cystoscopy on 02/21 and no abnormalities were noted. Dr. Cardoza discussed observation versus elective treatment of the left renal calculi and the patient elected on observation with the plan for a follow-up KUB in 3 months. The patient has no previous history of urinary tract infection and his urines in January and early February showed no evidence of infection. The patient says he usually voids every 1 to 2 hours during the day and once at night. He says he has had no recent change in this pattern. He also denied any dysuria at the time of admission, the patient did have left flank pain approximately one week ago and says that he passed 2 calculi. The last calculus was passed approximately 6 days ago. The patient has no previous history of urolithiasis. Patient's past medical history is significant in regard to obesity, type 2 diabetes mellitus, benign hypertension, and atrial fibrillation with a history of congestive heart failure. Medications at the time of admission included: 1. Lasix. 2. Gabapentin. 3. Insulin. 4. Lisinopril. 5. Metoprolol. 6. Potassium chloride. 7. Simvastatin. 8. Warfarin. 9. Metformin. 10. [place]. 11. Tamsulosin. The patient has no allergies. 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 No history of rheumatic fever, tuberculosis or hepatitis. REVIEW OF SYSTEMS: Significant mainly in regard to the above. Patient says he feels much better than when he came in. He denies any abdominal or flank pain at the present. SOCIAL HISTORY: The patient is . He had previously smoked. PHYSICAL EXAM: Reveals an obese 61-year-old male who is alert and oriented. Afebrile. Blood pressure 108/71. HEENT: No supraclavicular or cervical adenopathy. CHEST: Breathing is unlabored. ABDOMEN: Obese. No hepatosplenomegaly. No flank tenderness. GENITALIA: Both testicles are descended. No hernias present. No testicular induration or epididymal tenderness. Additional laboratory evaluation from today includes a white blood count of 9400. BUN 29, creatinine 0.90. Preliminary blood cultures are growing a gram-negative mina. Unfortunately, urine cultures were not obtained from the emergency room. IMPRESSION: Recent left flank pain and fever - patient's history is suggestive of passage of a left renal calculus and this may have explained the recent increase in BUN and creatinine which has now normalized. Patient may have had urosepsis based on the preliminary urine culture. Patient does not have obstructive calculi at the present time, and in view of this, urologic intervention for the calculus is not necessary at the present time. RECOMMENDATIONS: I am in agreement with the use of cefepime pending final blood cultures. It is unclear whether a urine culture was obtained through the emergency room as there was no emergency room order for this to be done. Dr. Cardoza has seen this patient in the past and will follow up with him. Thank you for allowing me to participate in the care of this gentleman. CHARLEE
[2017-03-19] MEDS ORDERED: MORPHINE SULFATE 4 MG/ML SYRINGE IVP STA (13:45)
[2017-03-19] MEDS: ACETAMINOPHEN TAB 325 MG TAB PO PRN (15:50)
[2017-03-19 16:51] LABS: Glucose,Whole Blood 238 mg/dL (75-99)
--- NOTE | 2017-03-19 16:59 | P.PN ---
Subjective REASON FOR ADMISSION: Left-sided flank pain and chills. HISTORY OF PRESENT ILLNESS: This is a 61-year-old gentleman comes in to the hospital with complaints of chills and generalized weakness. Patient stated that he was recently diagnosed with renal stones by Dr. Cardoza. Patient was started on Flomax and given pain medication. Patient states that he is a diabetic and this is the first instance of patient having these symptoms. Patient was admitted to the hospital and was noted to have some signs concerning for an infectious etiology, hence was started on antibiotics empirically. The patient was also noted to have supratherapeutic INR. The patient takes Coumadin for his atrial fibrillation. Patient was noted to have an INR around 8.2. Patient was given a dose of Levaquin in the emergency room and was admitted to the hospital. This a.m. patient was noted to have bacteremia with gram-negative rods. I was informed regarding that. The patient was started on cefepime at that time. During my evaluation, patient states it to be doing somewhat better, was eating his lunch, does state to have some flank pain radiating to his groin. No hematuria is reported. States to have intermittent chills. No nausea. No vomiting, headaches, blurry vision, chest pain, abdominal pain, diarrhea, or constipation at this time. 03/19/17 pt is having intermittent episodes of severe shaking and tremors preceded by a severe pain in his left flank Fourteen-point review of system was done none pertinent that what was mentioned above. GENERAL APPEARANCE: Alert, oriented x3. Does not appear to be in distress. HEAD: Atraumatic, normocephalic. Pupils equal, round, and react light and accommodation. LUNGS: Good air movement. Clear to auscultation. No rhonchi, wheezing or crackles. HEART: S1, S2 heard. Appears to be in regular rhythm. No murmurs appreciated. ABDOMEN: Soft. There is some left-sided flank tenderness. No guarding or rigidity noted. NEURO EXAM: No focal motor or sensory deficits noted. Cranial nerves II through XII grossly intact. No lower extremity edema is noted. Objective - Vital Signs Vital signs: Vital Signs Temp 99.9 F H 03/19/17 15:46 Pulse 110 H 03/19/17 15:46 Resp 20 03/19/17 15:46 BP 123/69 03/19/17 15:46 Pulse Ox 97 03/19/17 15:46 Intake & Output 03/18/17 03/19/17 03/19/17 18:59 06:59 18:59 Intake Total 3370 1000 1620 Output Total 6810 387 0709 Balance 2345 450 420 Weight 137.8 kg Intake: IV 1200 Sodium Chloride 0.9% 1, 1200 000 ml @ 100 mls/hr IV . Q10H [facility] Rx#:[id number] Intake, IV Titration 2750 1000 50 Amount Cefepime 1 gm In Sodium 50 50 Chloride 0.9% 50 ml @ 100 mls/hr IVPB Q12HR [facility] Rx #:[id number] Sodium Chloride 0.9% 1, 1200 000 ml @ 100 mls/hr IV . Q10H [facility] Rx#:[id number] Sodium Chloride 0.9% 1, 1000 1000 000 ml @ 999 mls/hr IV . Q1H1M ONE Rx#:[id number] Sodium Chloride 0.9% 500 500 ml @ 999 mls/hr IV .Q31M ONE Rx#:[id number] Oral 620 370 Output: Urine [id number] Uretheral (Davies) 450 Other: Voiding Method Toilet Toilet Indwelling Catheter # Voids 1 3 - Labs CBC & Chem 7: 03/19/17 06:06 03/19/17 06:06 Labs: Abnormal Lab Results - Last 24 Hours (Table) 03/18/17 03/18/17 03/18/17 Range/Units 17:54 21:02 21:45 RBC (4.30-5.90) m/uL Hgb (13.0-17.5) gm/dL Hct (39.0-53.0) % Neutrophils # (1.3-7.7) k/uL Lymphocytes # (1.0-4.8) k/uL PT (9.0-12.0) sec Chloride (98-107) mmol/L BUN (9-20) mg/dL Glucose (74-99) mg/dL POC Glucose (mg/dL) 220 H (75-99) mg/dL Plasma Lactic Acid Joel 2.8 H* (0.7-2.0) mmol/L Calcium (8.4-10.2) mg/dL Total Protein (6.3-8.2) g/dL Albumin (3.5-5.0) g/dL Urine Protein Trace H (Negative) Urine Glucose (UA) Trace H (Negative) Urine Blood Moderate H (Negative) Ur Leukocyte Esterase Large H (Negative) Urine WBC 73 H (0-5) /hpf Urine WBC Clumps Few H (None) /hpf Urine Bacteria Rare H (None) /hpf Hyaline Casts 5 H (0-2) /lpf Urine Mucus Rare H (None) /hpf 03/19/17 03/19/17 03/19/17 Range/Units 05:38 06:06 06:06 RBC 3.17 L (4.30-5.90) m/uL Hgb 9.3 L (13.0-17.5) gm/dL Hct 29.1 L (39.0-53.0) % Neutrophils # 7.9 H (1.3-7.7) k/uL Lymphocytes # 0.7 L (1.0-4.8) k/uL PT 17.8 H (9.0-12.0) sec Chloride (98-107) mmol/L BUN (9-20) mg/dL Glucose (74-99) mg/dL POC Glucose (mg/dL) 205 H (75-99) mg/dL Plasma Lactic Acid Joel (0.7-2.0) mmol/L Calcium (8.4-10.2) mg/dL Total Protein (6.3-8.2) g/dL Albumin (3.5-5.0) g/dL Urine Protein (Negative) Urine Glucose (UA) (Negative) Urine Blood (Negative) Ur Leukocyte Esterase (Negative) Urine WBC (0-5) /hpf Urine WBC Clumps (None) /hpf Urine Bacteria (None) /hpf Hyaline Casts (0-2) /lpf Urine Mucus (None) /hpf 03/19/17 03/19/17 03/19/17 Range/Units 06:06 11:47 13:24 RBC (4.30-5.90) m/uL Hgb (13.0-17.5) gm/dL Hct (39.0-53.0) % Neutrophils # (1.3-7.7) k/uL Lymphocytes # (1.0-4.8) k/uL PT (9.0-12.0) sec Chloride 108 H (98-107) mmol/L BUN 29 H (9-20) mg/dL Glucose 196 H (74-99) mg/dL POC Glucose (mg/dL) 275 H 321 H (75-99) mg/dL Plasma Lactic Acid Joel (0.7-2.0) mmol/L Calcium 8.2 L (8.4-10.2) mg/dL Total Protein 5.7 L (6.3-8.2) g/dL Albumin 2.3 L (3.5-5.0) g/dL Urine Protein (Negative) Urine Glucose (UA) (Negative) Urine Blood (Negative) Ur Leukocyte Esterase (Negative) Urine WBC (0-5) /hpf Urine WBC Clumps (None) /hpf Urine Bacteria (None) /hpf Hyaline Casts (0-2) /lpf Urine Mucus (None) /hpf 03/19/17 Range/Units 16:49 RBC (4.30-5.90) m/uL Hgb (13.0-17.5) gm/dL Hct (39.0-53.0) % Neutrophils # (1.3-7.7) k/uL Lymphocytes # (1.0-4.8) k/uL PT (9.0-12.0) sec Chloride (98-107) mmol/L BUN (9-20) mg/dL Glucose (74-99) mg/dL POC Glucose (mg/dL) 238 H (75-99) mg/dL Plasma Lactic Acid Joel (0.7-2.0) mmol/L Calcium (8.4-10.2) mg/dL Total Protein (6.3-8.2) g/dL Albumin (3.5-5.0) g/dL Urine Protein (Negative) Urine Glucose (UA) (Negative) Urine Blood (Negative) Ur Leukocyte Esterase (Negative) Urine WBC (0-5) /hpf Urine WBC Clumps (None) /hpf Urine Bacteria (None) /hpf Hyaline Casts (0-2) /lpf Urine Mucus (None) /hpf Microbiology - Last 24 Hours (Table) 03/17/17 18:43 Blood Culture Gram Stain - Preliminary Blood Blood Culture - Preliminary Gram Neg Bacilli Assessment and Plan Plan: ASSESSMENT AND PLAN: 1. Sepsis likely secondary to urinary tract infection complicated with renal stones which was noted on the abdominal ultrasound with 1.6 to 1.4 cm cluster of stones. No hydronephrosis is noted. 2. Supratherapeutic INR with Coumadin coagulopathy. 3. Acute kidney injury with likely prerenal azotemia. 4. Diabetes mellitus, uncontrolled. 5. History of hypertension. 6. Obesity. 7. Chronic atrial fibrillation on anticoagulation. 8. History of deep venous thrombosis. 9. Remote history of congestive heart failure, currently stable. 10. Previous history of diabetic foot ulcer. 11. Anemia of chronic disease. PLAN: continue with cefepime await final blood cultures urine cultures were sent today restart coumadin at 4mg daily insulin was increased 20units this am moniter glucose levels
--- NOTE | 2017-03-19 17:10 | P.CONS ---
History of Present Illness - Reason for Consult Consult date: 03/19/17 - Chief Complaint Fever and chills - History of Present Illness 61-year-old male with history of atrial fibrillation, remote deep venous thrombosis and recent history of nephrolithiasis. He has been following with urology. He was placed on Flomax recently was started feels slightly better until the sudden onset of fever chills rigors and increasing left-sided flank pain. He constantly presented to the emergency center and has been admitted for sepsis from the urinary system. Infectious disease consultation was requested. This pleasant gentleman at admission also noted to have evidence of markedly elevated INR. He does relate that he does go to his primary care physician office for this to be checked and his sister who is present relates somewhat consistence schedule. He believes is that the week before and it was not abnormal. However since becoming acutely ill it had worsened. He was not on new medications at home. Review of Systems Patient had fevers chills and sweats before coming to hospital. An increasing left-sided flank pain. HEENT:Denies headache or acute visual change. Denies sinus or mouth discomforts. Denies neck stiffness or pain. Denies significant oral cavity pain. Denies difficulty on swallowing. Lungs: Denies significant shortness of breath, cough, sputum production, or hemoptysis. Cardiovascular: Denies significant shortness of breath, chest pain, chest wall pain, orthopnea, dyspnea on exertion, syncope Gastrointestinal: For admission had some nausea and dry heaves. No hematemesis. Denies melena hematochezia or change in his bowel habit. Musculoskeletal: denies significant myalgias or arthralgias. No new joint swelling. Denies new back pain. Skin: Denies new rash or lesions. No new ulcers or wounds are related.. Neuro: Denies headache or visual change. Denies any new onset weakness or difficulty with ambulation. Denies falls or seizures. Psychiatric:Denies anxiety or depression. Endocrine: Denies significant fatigue, denies significant weight loss or weight gain. Past Medical History Past Medical History: Atrial Fibrillation, Heart Failure, Diabetes Mellitus, Deep Vein Thrombosis (DVT) Additional Past Medical History / Comment(s): IDDM type II, DVT R lower extremity, irregular heart rhythm, neuropathy bilateral legs/feet. kidney stones History of Any Multi-Drug Resistant Organisms: None Reported Past Surgical History: Orthopedic Surgery, Tonsillectomy Additional Past Surgical History / Comment(s): L knee arthroscopy, amputation 2nd and 3rd toe, L foot 06/22/16 Past Anesthesia/Blood Transfusion Reactions: No Reported Reaction Past Psychological History: No Psychological Hx Reported Additional Psychological History / Comment(s): Pt resides alone. He is independent. Retired auto parts delivery driver. No children. Remote tobacco use no alcohol use. No experience. No international travel. No animal exposures Smoking Status: Never smoker Past Alcohol Use History: Occasional Additional Past Alcohol Use History / Comment(s): Pt states he smoked from 1970- 1998 and was a 2-3 ppd smoker. HE states he drinks alcohol on occasion. Past Drug Use History: None Reported - Past Family History Father Family Medical History: COPD Additional Family Medical History / Comment(s): Father of emphysema at the age of 57 yrs. Mother Family Medical History: Diabetes Mellitus Additional Family Medical History / Comment(s): Mother at the age of 66 yrs. Medications and Allergies Home Medications and Allergies Comment(s): Current Medications Acetaminophen (Tylenol Tab) 650 mg PO Q6HR PRN PRN Reason: Mild Pain or Fever > 100.5 Last Admin: 03/19/17 15:50 Dose: 650 mg Sodium Chloride (Saline 0.9%) 1,000 mls @ 100 mls/hr IV .Q10H [facility] Last Admin: 03/19/17 12:09 Dose: 100 mls/hr Cefepime HCl 1 gm/ Sodium (Chloride) 50 mls @ 100 mls/hr IVPB Q12HR [facility] Last Admin: 03/19/17 07:53 Dose: 100 mls/hr Insulin Glargine (Lantus) 20 unit SQ HS [facility] Last Admin: 03/18/17 21:41 Dose: 20 unit Insulin Human Lispro (Humalog) 0 unit SQ ACHS [facility] PRN Reason: Protocol Last Admin: 03/19/17 12:09 Dose: 6 unit Metoprolol Tartrate (Lopressor) 100 mg PO BID [facility] Last Admin: 03/19/17 07:54 Dose: 100 mg Morphine Sulfate (Morphine Sulfate (Inj)) 4 mg IV Q4HR PRN PRN Reason: Severe Pain Last Admin: 03/19/17 12:09 Dose: 4 mg Naloxone HCl (Narcan) 0.2 mg IV Q2M PRN PRN Reason: Opioid Reversal Ondansetron HCl (Zofran) 4 mg IVP Q8HR PRN PRN Reason: Nausea And Vomiting Warfarin Sodium (Coumadin) 4 mg PO ONCE@1800 ONE Stop: 03/19/17 18:01 Home Medications Medication Instructions Recorded Confirmed Type Furosemide [Lasix] 80 mg PO BID 06/15/16 03/17/17 History Gabapentin 400 mg PO BID 06/15/16 03/17/17 History Insulin Regular, Human [NovoLIN R] See Protocol SQ TID 06/15/16 03/17/17 History Lisinopril 5 mg PO DAILY 06/15/16 03/17/17 History Metoprolol Tartrate [Lopressor] 100 mg PO BID 06/15/16 03/17/17 History Multivitamins, Thera [Multivitamin 1 tab PO DAILY 06/15/16 03/17/17 History (formulary)] Potassium Chloride [Klor-Con 20] 20 meq PO DAILY 06/15/16 03/17/17 History Simvastatin 10 mg PO HS 06/15/16 03/17/17 History Warfarin Sodium [Coumadin] 6 mg PO DAILY 06/15/16 03/17/17 History metFORMIN HCL 1,000 mg PO BID 06/15/16 03/17/17 History Cinnamon Bark [Cinnamon] 500 mg PO BID 03/17/17 03/17/17 History Hydrocodone/Acetaminophen [North 1 tab PO Q6H PRN 03/17/17 03/17/17 History 10-325 Tablet] Insulin Glargine [Lantus] See Protocol SQ HS 03/17/17 03/17/17 History Tamsulosin HCl [Flomax] 0.4 mg PO HS 03/17/17 03/17/17 History Allergies Allergy/AdvReac Type Severity Reaction Status Date / Time No Known Allergies Allergy Verified 03/17/17 14:14 Physical Exam Vitals: Vital Signs Temp Pulse Resp BP Pulse Ox 03/19/17 15:46 99.9 F H 110 H 20 123/69 97 03/19/17 15:21 83 18 03/19/17 12:00 96.2 F L 83 18 107/72 95 03/19/17 10:57 98 18 03/19/17 07:48 98 18 03/19/17 07:47 96.3 F L 98 18 108/71 96 03/19/17 04:00 98.8 F 91 18 98/67 95 03/19/17 00:00 98.7 F 87 18 100/64 96 03/18/17 20:00 98.8 F 97 18 104/67 95 03/18/17 18:38 100.6 F H 03/18/17 18:37 99.3 F 03/18/17 17:31 100.5 F H Intake and Output 03/19/17 03/19/17 03/19/17 06:59 14:59 22:59 Intake Total 1000 1620 Output Total 1200 Balance 1000 420 Intake: IV 1200 Sodium Chloride 0.9% 1, 1200 000 ml @ 100 mls/hr IV . Q10H [facility] Rx#:[id number] Intake, IV Titration 1000 50 Amount Cefepime 1 gm In Sodium 50 Chloride 0.9% 50 ml @ 100 mls/hr IVPB Q12HR [facility] Rx #:[id number] Sodium Chloride 0.9% 1, 1000 000 ml @ 999 mls/hr IV . Q1H1M [facility] Rx#:[id number] Oral 370 Output: Urine 1200 Uretheral (Davies) 450 Other: Voiding Method Toilet Toilet Indwelling Catheter # Voids 3 Weight 137.8 kg Pleasant 61-year-old male who is quite comfortable at this time. Improved from admission. But he started to have a chill. HEENT: Anicteric conjunctiva are pink and moist nasal mucosa grossly intact without significant lesions, there is no thrush. Poor dentition Neck: The neck is supple without significant lymphadenopathy or thyromegaly. Lungs: Good bilateral air entry without significant crackles or wheezing. There is no significant bronchial sounds. There is no egophony or dullness. Heart: Regular rate and rhythm with an audible S1-S2, no S3 no S4. There is no significant murmur click or rub, PMI was nondisplaced. Abdomen: Obese, Positive bowel sounds soft and nontender without palpable masses or organomegaly. There was no guarding or rebound. Does have mild left flank pain Extremities: The upper extremities have excellent pulses they are symmetric, no significant petechiae or telangiectasia. No splinter hemorrhages were noted. The lower extremities are free from significant edema. The peripheral pulses were 2+ and symmetric. Neuro: Awake alert oriented to person place and time. There are no acute new gross focal sensory motor deficits. Results CBC & Chem 7: 03/19/17 06:06 03/19/17 06:06 Labs: Abnormal Lab Results - Last 24 Hours (Table) 03/18/17 03/18/17 03/18/17 Range/Units 17:54 21:02 21:45 RBC (4.30-5.90) m/uL Hgb (13.0-17.5) gm/dL Hct (39.0-53.0) % Neutrophils # (1.3-7.7) k/uL Lymphocytes # (1.0-4.8) k/uL PT (9.0-12.0) sec Chloride (98-107) mmol/L BUN (9-20) mg/dL Glucose (74-99) mg/dL POC Glucose (mg/dL) 220 H (75-99) mg/dL Plasma Lactic Acid Joel 2.8 H* (0.7-2.0) mmol/L Calcium (8.4-10.2) mg/dL Total Protein (6.3-8.2) g/dL Albumin (3.5-5.0) g/dL Urine Protein Trace H (Negative) Urine Glucose (UA) Trace H (Negative) Urine Blood Moderate H (Negative) Ur Leukocyte Esterase Large H (Negative) Urine WBC 73 H (0-5) /hpf Urine WBC Clumps Few H (None) /hpf Urine Bacteria Rare H (None) /hpf Hyaline Casts 5 H (0-2) /lpf Urine Mucus Rare H (None) /hpf 03/19/17 03/19/17 03/19/17 Range/Units 05:38 06:06 06:06 RBC 3.17 L (4.30-5.90) m/uL Hgb 9.3 L (13.0-17.5) gm/dL Hct 29.1 L (39.0-53.0) % Neutrophils # 7.9 H (1.3-7.7) k/uL Lymphocytes # 0.7 L (1.0-4.8) k/uL PT 17.8 H (9.0-12.0) sec Chloride (98-107) mmol/L BUN (9-20) mg/dL Glucose (74-99) mg/dL POC Glucose (mg/dL) 205 H (75-99) mg/dL Plasma Lactic Acid Joel (0.7-2.0) mmol/L Calcium (8.4-10.2) mg/dL Total Protein (6.3-8.2) g/dL Albumin (3.5-5.0) g/dL Urine Protein (Negative) Urine Glucose (UA) (Negative) Urine Blood (Negative) Ur Leukocyte Esterase (Negative) Urine WBC (0-5) /hpf Urine WBC Clumps (None) /hpf Urine Bacteria (None) /hpf Hyaline Casts (0-2) /lpf Urine Mucus (None) /hpf 03/19/17 03/19/17 03/19/17 Range/Units 06:06 11:47 13:24 RBC (4.30-5.90) m/uL Hgb (13.0-17.5) gm/dL Hct (39.0-53.0) % Neutrophils # (1.3-7.7) k/uL Lymphocytes # (1.0-4.8) k/uL PT (9.0-12.0) sec Chloride 108 H (98-107) mmol/L BUN 29 H (9-20) mg/dL Glucose 196 H (74-99) mg/dL POC Glucose (mg/dL) 275 H 321 H (75-99) mg/dL Plasma Lactic Acid Joel (0.7-2.0) mmol/L Calcium 8.2 L (8.4-10.2) mg/dL Total Protein 5.7 L (6.3-8.2) g/dL Albumin 2.3 L (3.5-5.0) g/dL Urine Protein (Negative) Urine Glucose (UA) (Negative) Urine Blood (Negative) Ur Leukocyte Esterase (Negative) Urine WBC (0-5) /hpf Urine WBC Clumps (None) /hpf Urine Bacteria (None) /hpf Hyaline Casts (0-2) /lpf Urine Mucus (None) /hpf 03/19/17 Range/Units 16:49 RBC (4.30-5.90) m/uL Hgb (13.0-17.5) gm/dL Hct (39.0-53.0) % Neutrophils # (1.3-7.7) k/uL Lymphocytes # (1.0-4.8) k/uL PT (9.0-12.0) sec Chloride (98-107) mmol/L BUN (9-20) mg/dL Glucose (74-99) mg/dL POC Glucose (mg/dL) 238 H (75-99) mg/dL Plasma Lactic Acid Joel (0.7-2.0) mmol/L Calcium (8.4-10.2) mg/dL Total Protein (6.3-8.2) g/dL Albumin (3.5-5.0) g/dL Urine Protein (Negative) Urine Glucose (UA) (Negative) Urine Blood (Negative) Ur Leukocyte Esterase (Negative) Urine WBC (0-5) /hpf Urine WBC Clumps (None) /hpf Urine Bacteria (None) /hpf Hyaline Casts (0-2) /lpf Urine Mucus (None) /hpf Microbiology - Last 24 Hours (Table) 03/17/17 18:43 Blood Culture Gram Stain - Preliminary Blood Blood Culture - Preliminary Gram Neg Bacilli Laboratory Results WBC 9.4 k/uL (3.8-10.6) 03/19/17 06:06 RBC 3.17 m/uL (4.30-5.90) L 03/19/17 06:06 Hgb 9.3 gm/dL (13.0-17.5) L 03/19/17 06:06 Hct 29.1 % (39.0-53.0) L 03/19/17 06:06 MCV 91.7 fL (80.0-100.0) 03/19/17 06:06 MCH 29.2 pg (25.0-35.0) 03/19/17 06:06 MCHC 31.9 g/dL (31.0-37.0) 03/19/17 06:06 RDW 13.6 % (11.5-15.5) 03/19/17 06:06 Plt Count 159 k/uL (150-450) 03/19/17 06:06 Neutrophils % 84 % 03/19/17 06:06 Lymphocytes % 7 % 03/19/17 06:06 Monocytes % 4 % 03/19/17 06:06 Eosinophils % 1 % 03/19/17 06:06 Basophils % 0 % 03/19/17 06:06 Neutrophils # 7.9 k/uL (1.3-7.7) H 03/19/17 06:06 Lymphocytes # 0.7 k/uL (1.0-4.8) L 03/19/17 06:06 Monocytes # 0.4 k/uL (0-1.0) 03/19/17 06:06 Eosinophils # 0.1 k/uL (0-0.7) 03/19/17 06:06 Basophils # 0.0 k/uL (0-0.2) 03/19/17 06:06 Hypochromasia Moderate 03/19/17 06:06 PT 17.8 sec (9.0-12.0) H 03/19/17 06:06 INR 1.8 (<1.1) 03/19/17 06:06 APTT 54.0 sec (22.0-30.0) H 03/17/17 14:49 Sodium 139 mmol/L (137-145) 03/19/17 06:06 Potassium 4.6 mmol/L (3.5-5.1) 03/19/17 06:06 Chloride 108 mmol/L (98-107) H 03/19/17 06:06 Carbon Dioxide 22 mmol/L (22-30) 03/19/17 06:06 Anion Gap 9 mmol/L 03/19/17 06:06 BUN 29 mg/dL (9-20) H 03/19/17 06:06 Creatinine 0.90 mg/dL (0.66-1.25) 03/19/17 06:06 Est GFR (MDRD) Af Amer >60 (>60 ml/min/1.73 sqM) 03/19/17 06:06 Est GFR (MDRD) Non-Af >60 (>60 ml/min/1.73 sqM) 03/19/17 06:06 Glucose 196 mg/dL (74-99) H 03/19/17 06:06 POC Glucose (mg/dL) 238 mg/dL (75-99) H 03/19/17 16:49 POC Glu [employer] RALPH Leti Azul 03/19/17 16:[address] Glu mg/dL 206 mg/dL 03/18/17 06:08 Hemoglobin A1c 8.8 % (4.2-6.1) H 03/18/17 06:08 Plasma Lactic Acid Joel 1.1 mmol/L (0.7-2.0) 03/18/17 22:46 Calcium 8.2 mg/dL (8.4-10.2) L 03/19/17 06:06 Magnesium 1.8 mg/dL (1.6-2.3) 03/19/17 06:06 Total Bilirubin 0.9 mg/dL (0.2-1.3) 03/19/17 06:06 AST 43 U/L (17-59) 03/19/17 06:06 ALT 62 U/L (21-72) 03/19/17 06:06 Alkaline Phosphatase 72 U/L (38-126) 03/19/17 06:06 Total Creatine Kinase 41 U/L (55-170) L 03/17/17 14:49 CK-MB (CK-2) 1.6 ng/mL (0.0-2.4) 03/17/17 14:49 CK-MB (CK-2) Rel Index 3.9 03/17/17 14:49 Troponin I <0.012 ng/mL (0.000-0.034) 03/17/17 14:49 Total Protein 5.7 g/dL (6.3-8.2) L 03/19/17 06:06 Albumin 2.3 g/dL (3.5-5.0) L 03/19/17 06:06 Urine Color Yellow 03/18/17 21:45 Urine Appearance Cloudy (Clear) 03/18/17 21:45 Urine pH 5.0 (5.0-8.0) 03/18/17 21:45 Ur Specific [place] 1.012 (1.001-1.035) 03/18/17 21:45 Urine Protein Trace (Negative) H 03/18/17 21:45 Urine Glucose (UA) Trace (Negative) H 03/18/17 21:45 Urine Ketones Negative (Negative) 03/18/17 21:45 Urine Blood Moderate (Negative) H 03/18/17 21:45 Urine Nitrite Negative (Negative) 03/18/17 21:45 Urine Bilirubin Negative (Negative) 03/18/17 21:45 Urine Urobilinogen <2.0 mg/dL (<2.0) 03/18/17 21:45 Ur Leukocyte Esterase Large (Negative) H 03/18/17 21:45 Urine RBC 3 /hpf (0-5) 03/18/17 21:45 Urine WBC 73 /hpf (0-5) H 03/18/17 21:45 Urine WBC Clumps Few /hpf (None) H 03/18/17 21:45 Ur Squamous Epith Cells 3 /hpf (0-4) 03/18/17 21:45 Urine Bacteria Rare /hpf (None) H 03/18/17 21:45 Hyaline Casts 5 /lpf (0-2) H 03/18/17 21:45 Urine Mucus Rare /hpf (None) H 03/18/17 21:45 Microbiology 03/17/17 18:43 Blood Blood Culture Gram Stain - Preliminary 03/17/17 18:43 Blood Blood Culture - Preliminary Gram Neg Bacilli 03/17/17 18:43 Blood Blood Culture - Final Assessment and Plan (1) Gram negative sepsis Narrative/Plan: 61-year-old male presents to Hospital feeling very poorly. Sudden onset of fevers and chills and rigor. Creasing weakness. Also some left flank pain. Was found evidence of urinary tract infection with positive blood cultures with gram-negative bacilli. At presentation he also had a supratherapeutic INR. This is being monitored closely. Since he is on Coumadin would avoid further quinolone therapy. Has been placed on cefepime. Until we have further culture data that will continue. And once we have the evaluation of the pathogen further antibiotic therapy can then be advised. Hopefully can be on an oral course of the time of his discharge home, but again with his recent supratherapeutic INR would avoid quinolone therapy. Patient is following with urology. Renal ultrasound failed to reveal evidence of any obstructive uropathy and does not need any acute urological intervention, there is a small stone in the left kidney likely the etiology of his current discomfort. If he passes stone in the last few days he may also have a residual infection related to that. His diabetes needs improved control and hopefully he will be able to have some improvement when his infection improves. Leukocytosis is already improving. Status: Acute (2) Leukocytosis Status: Acute (3) Diabetes mellitus type 2, uncontrolled Status: Acute
[2017-03-19] MEDS ORDERED: SODIUM CHLORIDE 0.9% 1,000 ML IV ONE (17:36)
[2017-03-19] MEDS ORDERED: WARFARIN 2 MG TAB PO ONE (18:00)
[2017-03-19 20:56] LABS: Glucose,Whole Blood 234 mg/dL (75-99)
[2017-03-19] MEDS: INSULIN GLARGINE 100 UNIT/ML 10 ML VIAL SQ SCH (21:10)
[2017-03-20 00:56] LABS: Glucose,Whole Blood 231 mg/dL (75-99)
[2017-03-20] MEDS: MORPHINE SULFATE 4 MG/ML SYRINGE IV PRN ×5 (01:12→18:08)
[2017-03-20 05:55] LABS: Glucose,Whole Blood 226 mg/dL (75-99)
[2017-03-20] MEDS: SODIUM CHLORIDE 0.9% 1,000 ML IV SCH ×2 (06:31→15:51)
[2017-03-20] MEDS: INSULIN LISPRO (humaLOG) 300 UNIT/3 ML VIAL SQ SCH ×4 (06:32→21:44)
[2017-03-20 06:48] LABS: INR 1.6 (<1.1); Prothrombin Time 15.8 sec (9.0-12.0)
[2017-03-20 06:52] LABS: Basophils % (A) 0 %; CH 28.4; CHCM 31.5; Eosinophils # (A) 0.1 k/uL (0-0.7); Eosinophils % (A) 1 %; HCT 30.6 % (39.0-53.0); HDW 2.67; HGB 9.8 gm/dL (13.0-17.5); Hypochromasia Slight; Luc # (Auto) 0.32; Luc % (Auto) 3; Lymphocytes # (A) 0.7 k/uL (1.0-4.8); Lymphocytes % (A) 7 %; MCH 29.1 pg (25.0-35.0); MCHC 32.1 g/dL (31.0-37.0); MCV 90.4 fL (80.0-100.0); Mean Platelet Volume 7.3; Monocytes # (A) 0.2 k/uL (0-1.0); Monocytes % (A) 2 %; Neutrophils % (A) 86 %; RBC 3.39 m/uL (4.30-5.90); RDW 13.6 % (11.5-15.5); WBC 9.3 k/uL (3.8-10.6); WBC (Perox) 9.91
[2017-03-20 06:57] LABS: ALT 59 U/L (21-72); AST 32 U/L (17-59); Alkaline Phosphatase 84 U/L (38-126); Anion Gap 6 mmol/L; Blood Urea Nitrogen 17 mg/dL (9-20); Calcium 8.1 mg/dL (8.4-10.2); Carbon Dioxide 25 mmol/L (22-30); Chloride 110 mmol/L (98-107); Glucose 216 mg/dL (74-99); Non-African American GFR(MDRD) >60 (>60 ml/min/1.73 sqM); Potassium 4.1 mmol/L (3.5-5.1); Sodium 141 mmol/L (137-145); Total Bilirubin 0.8 mg/dL (0.2-1.3); Total Protein 5.8 g/dL (6.3-8.2)
[2017-03-20] MEDS: CEFEPIME 1 GM in SODIUM CHLORIDE 0.9% 50 ML IVPB SCH ×2 (08:16→21:42)
[2017-03-20] MEDS: METOPROLOL TARTRATE 50 MG TAB PO SCH ×2 (08:16→21:43)
[2017-03-20 12:06] LABS: Glucose,Whole Blood 211 mg/dL (75-99)
[2017-03-20 16:53] LABS: Glucose,Whole Blood 209 mg/dL (75-99)
--- NOTE | 2017-03-20 17:42 | P.PN ---
Subjective REASON FOR ADMISSION: Left-sided flank pain and chills. HISTORY OF PRESENT ILLNESS: This is a 61-year-old gentleman comes in to the hospital with complaints of chills and generalized weakness. Patient stated that he was recently diagnosed with renal stones by Dr. Cardoza. Patient was started on Flomax and given pain medication. Patient states that he is a diabetic and this is the first instance of patient having these symptoms. Patient was admitted to the hospital and was noted to have some signs concerning for an infectious etiology, hence was started on antibiotics empirically. The patient was also noted to have supratherapeutic INR. The patient takes Coumadin for his atrial fibrillation. Patient was noted to have an INR around 8.2. Patient was given a dose of Levaquin in the emergency room and was admitted to the hospital. This a.m. patient was noted to have bacteremia with gram-negative rods. I was informed regarding that. The patient was started on cefepime at that time. During my evaluation, patient states it to be doing somewhat better, was eating his lunch, does state to have some flank pain radiating to his groin. No hematuria is reported. States to have intermittent chills. No nausea. No vomiting, headaches, blurry vision, chest pain, abdominal pain, diarrhea, or constipation at this time. 03/19/17 pt is having intermittent episodes of severe shaking and tremors preceded by a severe pain in his left flank 03/20/17 doing well today states that his left flank pain is improved does state to have some pain on sitting for a prolonged period in the lumbar region Fourteen-point review of system was done none pertinent that what was mentioned above. GENERAL APPEARANCE: Alert, oriented x3. Does not appear to be in distress. HEAD: Atraumatic, normocephalic. Pupils equal, round, and react light and accommodation. LUNGS: Good air movement. Clear to auscultation. No rhonchi, wheezing or crackles. HEART: S1, S2 heard. Appears to be in regular rhythm. No murmurs appreciated. ABDOMEN: Soft. There is some left-sided flank tenderness. No guarding or rigidity noted. NEURO EXAM: No focal motor or sensory deficits noted. Cranial nerves II through XII grossly intact. No lower extremity edema is noted. Objective - Vital Signs Vital signs: Vital Signs Temp 96.7 F L 03/20/17 16:00 Pulse 76 06/05/17 16:00 Resp 18 03/20/17 16:00 BP 115/72 03/20/17 16:00 Pulse Ox 96 03/20/17 16:00 Intake & Output 03/19/17 03/20/17 03/20/17 18:59 06:59 18:59 Intake Total 2910 600 1416 Output Total 1200 1100 Balance 1710 -500 1416 Weight 140.2 kg Intake: IV 8252 988 9951 Sodium Chloride 0.9% 1, 9454 387 5169 000 ml @ 100 mls/hr IV . Q10H [facility] Rx#:[id number] Intake, IV Titration 1040 Amount Cefepime 1 gm In Sodium 50 Chloride 0.9% 50 ml @ 100 mls/hr IVPB Q12HR [facility] Rx #:[id number] Sodium Chloride 0.9% 1, 990 000 ml @ 999 mls/hr IV . Q1H1M [facility] Rx#:[id number] Oral 670 416 Output: Urine 1200 1100 Uretheral (Davies) 450 Other: Voiding Method Indwelling Catheter Indwelling Catheter Indwelling Catheter # Voids 3 - Labs CBC & Chem 7: 03/20/17 06:11 03/20/17 06:11 Labs: Abnormal Lab Results - Last 24 Hours (Table) 03/19/17 03/20/17 03/20/17 Range/Units 20:55 00:54 05:51 RBC (4.30-5.90) m/uL Hgb (13.0-17.5) gm/dL Hct (39.0-53.0) % Neutrophils # (1.3-7.7) k/uL Lymphocytes # (1.0-4.8) k/uL PT (9.0-12.0) sec Chloride (98-107) mmol/L Glucose (74-99) mg/dL POC Glucose (mg/dL) 234 H 231 H 226 H (75-99) mg/dL Calcium (8.4-10.2) mg/dL Total Protein (6.3-8.2) g/dL Albumin (3.5-5.0) g/dL 03/20/17 03/20/17 03/20/17 Range/Units 06:11 06:11 06:11 RBC 3.39 L (4.30-5.90) m/uL Hgb 9.8 L (13.0-17.5) gm/dL Hct 30.6 L (39.0-53.0) % Neutrophils # 8.0 H (1.3-7.7) k/uL Lymphocytes # 0.7 L (1.0-4.8) k/uL PT 15.8 H (9.0-12.0) sec Chloride 110 H (98-107) mmol/L Glucose 216 H (74-99) mg/dL POC Glucose (mg/dL) (75-99) mg/dL Calcium 8.1 L (8.4-10.2) mg/dL Total Protein 5.8 L (6.3-8.2) g/dL Albumin 2.3 L (3.5-5.0) g/dL 03/20/17 03/20/17 Range/Units 12:04 16:49 RBC (4.30-5.90) m/uL Hgb (13.0-17.5) gm/dL Hct (39.0-53.0) % Neutrophils # (1.3-7.7) k/uL Lymphocytes # (1.0-4.8) k/uL PT (9.0-12.0) sec Chloride (98-107) mmol/L Glucose (74-99) mg/dL POC Glucose (mg/dL) 211 H 209 H (75-99) mg/dL Calcium (8.4-10.2) mg/dL Total Protein (6.3-8.2) g/dL Albumin (3.5-5.0) g/dL Microbiology - Last 24 Hours (Table) 03/19/17 14:10 Urine Culture - Preliminary Urine,Catheterized 03/17/17 18:43 Blood Culture Gram Stain - Final Blood Blood Culture - Final Escherichia coli Assessment and Plan Plan: ASSESSMENT AND PLAN: 1. Sepsis likely secondary to urinary tract infection complicated with renal stones which was noted on the abdominal ultrasound with 1.6 to 1.4 cm cluster of stones. No hydronephrosis is noted. 2. Supratherapeutic INR with Coumadin coagulopathy. 3. Acute kidney injury with likely prerenal azotemia. 4. Diabetes mellitus, uncontrolled. 5. History of hypertension. 6. Obesity. 7. Chronic atrial fibrillation on anticoagulation. 8. History of deep venous thrombosis. 9. Remote history of congestive heart failure, currently stable. 10. Previous history of diabetic foot ulcer. 11. Anemia of chronic disease. PLAN: continue with cefepime repeat blood cultures restart coumadin at 4mg daily insulin 20units moniter glucose levels
[2017-03-20] MEDS ORDERED: WARFARIN 2 MG TAB PO ONE (18:00)
--- NOTE | 2017-03-20 20:26 | P.PN ---
Subjective Principal diagnosis: Fever and chills 61-year-old male with history of atrial fibrillation, remote deep venous thrombosis and recent history of nephrolithiasis. He has been following with urology. He was placed on Flomax recently was started feels slightly better until the sudden onset of fever chills rigors and increasing left-sided flank pain. He constantly presented to the emergency center and has been admitted for sepsis from the urinary system. Infectious disease consultation was requested. This pleasant gentleman at admission also noted to have evidence of markedly elevated INR. He does relate that he does go to his primary care physician office for this to be checked and his sister who is present relates somewhat consistence schedule. He believes is that the week before and it was not abnormal. However since becoming acutely ill it had worsened. He was not on new medications at home. He has definitely feeling better. Denying interim new troubles. Eating well. Objective - Vital Signs Vital signs: Vital Signs Temp 97.9 F 03/20/17 20:00 Pulse 99 03/20/17 20:00 Resp 18 03/20/17 20:00 BP 111/78 03/20/17 20:00 Pulse Ox 95 03/20/17 20:00 Intake & Output 03/20/17 03/20/17 03/21/17 06:59 18:59 06:59 Intake Total 600 1652 Output Total 1100 1200 Balance -500 452 Weight 140.2 kg Intake: IV 600 1000 Sodium Chloride 0.9% 1, 600 1000 000 ml @ 100 mls/hr IV . Q10H MIKIE Rx#:[id number] Oral 652 Output: Urine 1100 1200 Other: Voiding Method Indwelling Catheter Indwelling Catheter - Exam Pleasant 61-year-old male who is quite comfortable at this time. Improved from admission. But he started to have a chill. HEENT: Anicteric conjunctiva are pink and moist nasal mucosa grossly intact without significant lesions, there is no thrush. Poor dentition Neck: The neck is supple without significant lymphadenopathy or thyromegaly. Lungs: Good bilateral air entry without significant crackles or wheezing. There is no significant bronchial sounds. There is no egophony or dullness. Heart: Regular rate and rhythm with an audible S1-S2, no S3 no S4. There is no significant murmur click or rub, PMI was nondisplaced. Abdomen: Obese, Positive bowel sounds soft and nontender without palpable masses or organomegaly. There was no guarding or rebound. Does have mild left flank pain Extremities: The upper extremities have excellent pulses they are symmetric, no significant petechiae or telangiectasia. No splinter hemorrhages were noted. The lower extremities are free from significant edema. The peripheral pulses were 2+ and symmetric. Neuro: Awake alert oriented to person place and time. There are no acute new gross focal sensory motor deficits. - Labs CBC & Chem 7: 03/20/17 06:11 03/20/17 06:11 Labs: Abnormal Lab Results - Last 24 Hours (Table) 03/19/17 03/20/17 03/20/17 Range/Units 20:55 00:54 05:51 RBC (4.30-5.90) m/uL Hgb (13.0-17.5) gm/dL Hct (39.0-53.0) % Neutrophils # (1.3-7.7) k/uL Lymphocytes # (1.0-4.8) k/uL PT (9.0-12.0) sec Chloride (98-107) mmol/L Glucose (74-99) mg/dL POC Glucose (mg/dL) 234 H 231 H 226 H (75-99) mg/dL Calcium (8.4-10.2) mg/dL Total Protein (6.3-8.2) g/dL Albumin (3.5-5.0) g/dL 03/20/17 03/20/17 03/20/17 Range/Units 06:11 06:11 06:11 RBC 3.39 L (4.30-5.90) m/uL Hgb 9.8 L (13.0-17.5) gm/dL Hct 30.6 L (39.0-53.0) % Neutrophils # 8.0 H (1.3-7.7) k/uL Lymphocytes # 0.7 L (1.0-4.8) k/uL PT 15.8 H (9.0-12.0) sec Chloride 110 H (98-107) mmol/L Glucose 216 H (74-99) mg/dL POC Glucose (mg/dL) (75-99) mg/dL Calcium 8.1 L (8.4-10.2) mg/dL Total Protein 5.8 L (6.3-8.2) g/dL Albumin 2.3 L (3.5-5.0) g/dL 03/20/17 03/20/17 Range/Units 12:04 16:49 RBC (4.30-5.90) m/uL Hgb (13.0-17.5) gm/dL Hct (39.0-53.0) % Neutrophils # (1.3-7.7) k/uL Lymphocytes # (1.0-4.8) k/uL PT (9.0-12.0) sec Chloride (98-107) mmol/L Glucose (74-99) mg/dL POC Glucose (mg/dL) 211 H 209 H (75-99) mg/dL Calcium (8.4-10.2) mg/dL Total Protein (6.3-8.2) g/dL Albumin (3.5-5.0) g/dL Microbiology - Last 24 Hours (Table) 03/19/17 14:10 Urine Culture - Final Urine,Catheterized 03/17/17 18:43 Blood Culture Gram Stain - Final Blood Blood Culture - Final Escherichia coli Laboratory Results WBC 9.3 k/uL (3.8-10.6) 03/20/17 06:11 RBC 3.39 m/uL (4.30-5.90) L 03/20/17 06:11 Hgb 9.8 gm/dL (13.0-17.5) L 03/20/17 06:11 Hct 30.6 % (39.0-53.0) L 03/20/17 06:11 MCV 90.4 fL (80.0-100.0) 03/20/17 06:11 MCH 29.1 pg (25.0-35.0) 03/20/17 06:11 MCHC 32.1 g/dL (31.0-37.0) 03/20/17 06:11 RDW 13.6 % (11.5-15.5) 03/20/17 06:11 Plt Count 170 k/uL (150-450) 03/20/17 06:11 Neutrophils % 86 % 03/20/17 06:11 Lymphocytes % 7 % 03/20/17 06:11 Monocytes % 2 % 03/20/17 06:11 Eosinophils % 1 % 03/20/17 06:11 Basophils % 0 % 03/20/17 06:11 Neutrophils # 8.0 k/uL (1.3-7.7) H 03/20/17 06:11 Lymphocytes # 0.7 k/uL (1.0-4.8) L 03/20/17 06:11 Monocytes # 0.2 k/uL (0-1.0) 03/20/17 06:11 Eosinophils # 0.1 k/uL (0-0.7) 03/20/17 06:11 Basophils # 0.0 k/uL (0-0.2) 03/20/17 06:11 Hypochromasia Slight 03/20/17 06:11 PT 15.8 sec (9.0-12.0) H 03/20/17 06:11 INR 1.6 (<1.1) 03/20/17 06:11 APTT 54.0 sec (22.0-30.0) H 03/17/17 14:49 Sodium 141 mmol/L (137-145) 03/20/17 06:11 Potassium 4.1 mmol/L (3.5-5.1) 03/20/17 06:11 Chloride 110 mmol/L (98-107) H 03/20/17 06:11 Carbon Dioxide 25 mmol/L (22-30) 03/20/17 06:11 Anion Gap 6 mmol/L 03/20/17 06:11 BUN 17 mg/dL (9-20) 03/20/17 06:11 Creatinine 0.82 mg/dL (0.66-1.25) 03/20/17 06:11 Est GFR (MDRD) Af Amer >60 (>60 ml/min/1.73 sqM) 03/20/17 06:11 Est GFR (MDRD) Non-Af >60 (>60 ml/min/1.73 sqM) 03/20/17 06:11 Glucose 216 mg/dL (74-99) H 03/20/17 06:11 POC Glucose (mg/dL) 209 mg/dL (75-99) H 03/20/17 16:49 POC Glu Photo Journalist Leti Glover 03/20/17 16:[address] Glu mg/dL 206 mg/dL 03/18/17 06:08 Hemoglobin A1c 8.8 % (4.2-6.1) H 03/18/17 06:08 Plasma Lactic Acid Joel 1.1 mmol/L (0.7-2.0) 03/18/17 22:46 Calcium 8.1 mg/dL (8.4-10.2) L 03/20/17 06:11 Magnesium 1.8 mg/dL (1.6-2.3) 03/19/17 06:06 Total Bilirubin 0.8 mg/dL (0.2-1.3) 03/20/17 06:11 AST 32 U/L (17-59) 03/20/17 06:11 ALT 59 U/L (21-72) 03/20/17 06:11 Alkaline Phosphatase 84 U/L (38-126) 03/20/17 06:11 Total Creatine Kinase 41 U/L (55-170) L 03/17/17 14:49 CK-MB (CK-2) 1.6 ng/mL (0.0-2.4) 03/17/17 14:49 CK-MB (CK-2) Rel Index 3.9 03/17/17 14:49 Troponin I <0.012 ng/mL (0.000-0.034) 03/17/17 14:49 Total Protein 5.8 g/dL (6.3-8.2) L 03/20/17 06:11 Albumin 2.3 g/dL (3.5-5.0) L 03/20/17 06:11 Urine Color Yellow 03/18/17 21:45 Urine Appearance Cloudy (Clear) 03/18/17 21:45 Urine pH 5.0 (5.0-8.0) 03/18/17 21:45 Ur Specific [place] 1.012 (1.001-1.035) 03/18/17 21:45 Urine Protein Trace (Negative) H 03/18/17 21:45 Urine Glucose (UA) Trace (Negative) H 03/18/17 21:45 Urine Ketones Negative (Negative) 03/18/17 21:45 Urine Blood Moderate (Negative) H 03/18/17 21:45 Urine Nitrite Negative (Negative) 03/18/17 21:45 Urine Bilirubin Negative (Negative) 03/18/17 21:45 Urine Urobilinogen <2.0 mg/dL (<2.0) 03/18/17 21:45 Ur Leukocyte Esterase Large (Negative) H 03/18/17 21:45 Urine RBC 3 /hpf (0-5) 03/18/17 21:45 Urine WBC 73 /hpf (0-5) H 03/18/17 21:45 Urine WBC Clumps Few /hpf (None) H 03/18/17 21:45 Ur Squamous Epith Cells 3 /hpf (0-4) 03/18/17 21:45 Urine Bacteria Rare /hpf (None) H 03/18/17 21:45 Hyaline Casts 5 /lpf (0-2) H 03/18/17 21:45 Urine Mucus Rare /hpf (None) H 03/18/17 21:45 Microbiology 03/19/17 14:10 Urine,Catheterized Urine Culture - Final 03/17/17 18:43 Blood Blood Culture Gram Stain - Final 03/17/17 18:43 Blood Blood Culture - Final Escherichia coli 03/17/17 18:43 Blood Blood Culture - Final Assessment and Plan (1) Gram negative sepsis Narrative/Plan: 61-year-old male presents to Hospital feeling very poorly. Sudden onset of fevers and chills and rigor. Creasing weakness. Also some left flank pain. Was found evidence of urinary tract infection with positive blood cultures with gram-negative bacilli. At presentation he also had a supratherapeutic INR. This is being monitored closely. Since he is on Coumadin would avoid further quinolone therapy. Has been placed on cefepime. Until we have further culture data that will continue. And once we have the evaluation of the pathogen further antibiotic therapy can then be advised. Hopefully can be on an oral course of the time of his discharge home, but again with his recent supratherapeutic INR would avoid quinolone therapy. Patient is following with urology. Renal ultrasound failed to reveal evidence of any obstructive uropathy and does not need any acute urological intervention, there is a small stone in the left kidney likely the etiology of his current discomfort. If he passes stone in the last few days he may also have a residual infection related to that. His diabetes needs improved control and hopefully he will be able to have some improvement when his infection improves. Leukocytosis is improving. Blood culture is finalized reveals evidence of an Escherichia coli that is mayo susceptible. We'll complete 10 further days of antibiotic therapy with trimethoprim sulfamethoxazole, which will also require close monitoring of his PT and INR with his anticoagulation. Status: Acute (2) Leukocytosis Status: Acute (3) Diabetes mellitus type 2, uncontrolled Status: Acute
[2017-03-20 21:04] LABS: Glucose,Whole Blood 211 mg/dL (75-99)
[2017-03-20] MEDS: INSULIN GLARGINE 100 UNIT/ML 10 ML VIAL SQ SCH (21:43)
[2017-03-21 05:47] LABS: Glucose,Whole Blood 206 mg/dL (75-99)
[2017-03-21] MEDS: SODIUM CHLORIDE 0.9% 1,000 ML IV SCH ×2 (06:06→22:25)
[2017-03-21 06:30] LABS: INR 1.9 (<1.1); Prothrombin Time 18.1 sec (9.0-12.0)
[2017-03-21 06:40] LABS: Basophils % (A) 0 %; CH 28.6; Eosinophils # (A) 0.1 k/uL (0-0.7); Eosinophils % (A) 1 %; HCT 30.9 % (39.0-53.0); HDW 2.73; Hypochromasia Slight; Luc # (Auto) 0.33; Luc % (Auto) 4; Lymphocytes # (A) 0.9 k/uL (1.0-4.8); Lymphocytes % (A) 10 %; MCHC 32.3 g/dL (31.0-37.0); MCV 89.9 fL (80.0-100.0); Mean Platelet Volume 7.2; Monocytes # (A) 0.3 k/uL (0-1.0); Monocytes % (A) 3 %; Neutrophils # (A) 7.5 k/uL (1.3-7.7); Neutrophils % (A) 82 %; RBC 3.43 m/uL (4.30-5.90); RDW 13.7 % (11.5-15.5); WBC 9.2 k/uL (3.8-10.6); WBC (Perox) 9.32
[2017-03-21 06:47] LABS: ALT 59 U/L (21-72); AST 48 U/L (17-59); Alkaline Phosphatase 82 U/L (38-126); Anion Gap 6 mmol/L; Blood Urea Nitrogen 12 mg/dL (9-20); Calcium 8.3 mg/dL (8.4-10.2); Carbon Dioxide 25 mmol/L (22-30); Chloride 108 mmol/L (98-107); Glucose 212 mg/dL (74-99); Non-African American GFR(MDRD) >60 (>60 ml/min/1.73 sqM); Potassium 4.2 mmol/L (3.5-5.1); Sodium 139 mmol/L (137-145); Total Bilirubin 0.7 mg/dL (0.2-1.3); Total Protein 5.7 g/dL (6.3-8.2)
[2017-03-21 07:22] LABS: Glucose,Whole Blood 209 mg/dL (75-99)
[2017-03-21] MEDS: INSULIN LISPRO (humaLOG) 300 UNIT/3 ML VIAL SQ SCH ×4 (08:12→22:34)
[2017-03-21] MEDS: METOPROLOL TARTRATE 50 MG TAB PO SCH ×2 (08:15→22:33)
[2017-03-21] MEDS: CEFEPIME 1 GM in SODIUM CHLORIDE 0.9% 50 ML IVPB SCH ×2 (09:38→22:25)
[2017-03-21] MEDS ORDERED: DILTIAZEM ORAL 60 MG TAB PO STA (09:58)
[2017-03-21] MEDS ORDERED: SODIUM CHLORIDE 0.9% 1,000 ML IV ONE (09:59)
[2017-03-21] MEDS: MORPHINE SULFATE 4 MG/ML SYRINGE IV PRN ×3 (10:48→22:29)
[2017-03-21 11:27] LABS: Glucose,Whole Blood 235 mg/dL (75-99)
[2017-03-21] MEDS: DILTIAZEM ORAL 30 MG TAB PO SCH ×3 (12:04→22:34)
[2017-03-21] MEDS ORDERED: METOPROLOL TARTRATE 50 MG TAB PO SCH (16:00)
[2017-03-21 17:36] LABS: Glucose,Whole Blood 182 mg/dL (75-99)
--- NOTE | 2017-03-21 19:18 | P.PN ---
Progress Note - Text Mr. Major is currently afebrile. He denies dysuria, hematuria, and voiding difficulty. He reports left hip pain, which has been present for quite some time. A blood culture obtained at the time of admission showed pansensitive E. coli. A urine culture obtained after initiation of antibiotics was negative. It was presumed that his sepsis was of urinary origin, and he is improving with antibiotics. A recent computed tomography scan shows multiple left lower pole renal calculi, the largest of which measures 11 mm, with no hydronephrosis. It is possible that this is the cause of his hip/lower back discomfort. It is my feeling that he is urologically stable for discharge. He will be treated with outpatient antibiotic therapy and follow-up with me in 2-3 weeks. Please notify me if I can be of any further assistance.
[2017-03-21 20:59] LABS: Glucose,Whole Blood 206 mg/dL (75-99)
[2017-03-21 23:14] VITALS: PULSE 87; RESP 16
[2017-03-21] MEDS: INSULIN GLARGINE 100 UNIT/ML 10 ML VIAL SQ SCH (23:14)
[2017-03-22] MEDS: SODIUM CHLORIDE 0.9% 1,000 ML IV SCH ×2 (01:49→09:11)
[2017-03-22] MEDS: MORPHINE SULFATE 4 MG/ML SYRINGE IV PRN ×2 (03:23→09:16)
[2017-03-22 06:23] LABS: INR 2.4 (<1.1)
[2017-03-22 07:26] LABS: Glucose,Whole Blood 162 mg/dL (75-99)
[2017-03-22] MEDS: INSULIN LISPRO (humaLOG) 300 UNIT/3 ML VIAL SQ SCH ×2 (08:01→12:51)
[2017-03-22] MEDS: METOPROLOL TARTRATE 50 MG TAB PO SCH (09:11)
[2017-03-22] MEDS: DILTIAZEM ORAL 30 MG TAB PO SCH ×2 (09:11→12:52)
[2017-03-22] MEDS: CEFEPIME 1 GM in SODIUM CHLORIDE 0.9% 50 ML IVPB SCH (10:30)
[2017-03-22 11:05] LABS: Glucose,Whole Blood 204 mg/dL (75-99)
--- NOTE | 2017-03-22 15:15 | PN ---
DATE OF SERVICE: 03/21/2017 This is a 61-year-old gentleman that comes in to the hospital with complaints of generalized weakness and chills. Patient was noted to have a large renal stone. Patient was noted to have bacteremia with a gram-negative bacilli, was started on cefepime empirically. Patient was also noted to have an elevated INR around 8.2. Over the course of hospitalization, patient improved significantly, states his left flank pain is improved. Has not had a febrile episode. Repeat blood cultures have been negative. Patient's E. coli susceptibilities are still pending. PHYSICAL EXAM: Vitals on 03/21/2017, temperature 98.2, heart rate 87, respiratory rate 16, blood pressure 132/79, saturating at 96% on 2 L supplemental oxygen. GENERALLY: Patient appears to be alert, oriented x3. HEENT: The pupils are equal and reactive to light and accommodation. HEART: S1, S2 present. No murmur appreciated. LUNGS: Good air entry. No wheezing or rhonchi noted. ABDOMINAL EXAM: Soft, nontender, no organomegaly appreciated. GENITOURINARY: No Davies in place. EXTREMITIES: Pulses can be palpated distally. Denies any tenderness on gross palpation. SKIN: On a gross skin exam does not appear to have any purpura or any skin rashes that were noted. NEUROLOGICALLY: Grossly cranial nerves 2-12 intact. No motor or sensory deficits noted. LABORATORY DATA: On 03/21/2017 is sodium 139, potassium 4.2, chloride 108, bicarb 25, BUN 12, creatinine 0.80, glucose levels range between 182 and 212. ASSESSMENT AND PLAN: 1. Sepsis secondary to a urinary tract infection. 2. Supratherapeutic INR with Coumadin coagulopathy. 3. Acute kidney injury which is improved. 4. Diabetes mellitus. 5. History of hypertension. 6. Obesity. 7. Chronic atrial fibrillation. 8. History of deep venous thrombosis. 9. Remote history of congestive heart failure, stable. 10. Previous history of diabetic foot ulcer. 11. Anemia of chronic disease. PLAN: Continue ongoing care. Once repeat cultures are negative, patient will be discharged on oral antibiotics. Patient is fairly stable at this time. Await culture or no growth at least for 48 hours. Will likely discharge the patient in the next 24 to 48 hours.
[2017-03-22] MEDS: ACETAMINOPHEN TAB 325 MG TAB PO PRN (17:41)
[2017-03-22 17:43] VITALS: BP 126/82; TEMP 98.2
--- NOTE | 2017-03-22 18:23 | P.DS ---
Providers Date of admission: 03/17/17 19:37 Attending physician: Osman Ray MD Consults: 03/18/17 12:59 Consult Physician Routine Consulting Provider: Donaldo Garcia Consult Reason/Comments: (+) BLOOD CULTURES Do you want consulting provider notified?: Yes 03/18/17 17:50 Consult Physician Routine Consulting Provider: Wilton Cardoza Consult Reason/Comments: renal stones Do you want consulting provider notified?: Yes Primary care physician: [facility] Course: REASON FOR ADMISSION: Left-sided flank pain and chills. HISTORY OF PRESENT ILLNESS: This is a 61-year-old gentleman comes in to the hospital with complaints of chills and generalized weakness. Patient stated that he was recently diagnosed with renal stones by Dr. Cardoza. Patient was started on Flomax and given pain medication. Patient states that he is a diabetic and this is the first instance of patient having these symptoms. Patient was admitted to the hospital and was noted to have some signs concerning for an infectious etiology, hence was started on antibiotics empirically. The patient was also noted to have supratherapeutic INR. The patient takes Coumadin for his atrial fibrillation. Patient was noted to have an INR around 8.2. Patient was given a dose of Levaquin in the emergency room and was admitted to the hospital. This a.m. patient was noted to have bacteremia with gram-negative rods. I was informed regarding that. The patient was started on cefepime at that time. During my evaluation, patient states it to be doing somewhat better, was eating his lunch, does state to have some flank pain radiating to his groin. No hematuria is reported. States to have intermittent chills. No nausea. No vomiting, headaches, blurry vision, chest pain, abdominal pain, diarrhea, or constipation at this time. 03/19/17 pt is having intermittent episodes of severe shaking and tremors preceded by a severe pain in his left flank 03/20/17 doing well today states that his left flank pain is improved does state to have some pain on sitting for a prolonged period in the lumbar region Fourteen-point review of system was done none pertinent that what was mentioned above. 03/22/17 doing well no fevers, chills, nausea, vomiting, diarrhea GENERAL APPEARANCE: Alert, oriented x3. Does not appear to be in distress. HEAD: Atraumatic, normocephalic. Pupils equal, round, and react light and accommodation. LUNGS: Good air movement. Clear to auscultation. No rhonchi, wheezing or crackles. HEART: S1, S2 heard. Appears to be in regular rhythm. No murmurs appreciated. ABDOMEN: Soft. There is some left-sided flank tenderness. No guarding or rigidity noted. NEURO EXAM: No focal motor or sensory deficits noted. Cranial nerves II through XII grossly intact. No lower extremity edema is noted. Assessment and Plan Plan: ASSESSMENT AND PLAN: 1. Sepsis likely secondary to urinary tract infection complicated with renal stones which was noted on the abdominal ultrasound with 1.6 to 1.4 cm cluster of stones. No hydronephrosis is noted. 2. Supratherapeutic INR with Coumadin coagulopathy. 3. Acute kidney injury with likely prerenal azotemia. 4. Diabetes mellitus, uncontrolled. 5. History of hypertension. 6. Obesity. 7. Chronic atrial fibrillation on anticoagulation. 8. History of deep venous thrombosis. 9. Remote history of congestive heart failure, currently stable. 10. Previous history of diabetic foot ulcer. 11. Anemia of chronic disease. dc home on bactrim follow up with Dr Cardoza for outpatient lithotripsy Patient Condition at Discharge: Stable Plan - Discharge Summary New Discharge Prescriptions: New Sulfamethox-Tmp 800-160Mg [Bactrim DS 800-160 mg] 1 tab PO Q12HR #20 tab Insulin Glargine [Lantus] 25 unit SQ HS vial Warfarin [Coumadin] 3 mg PO DAILY #30 tab Diltiazem Cd [Cardizem Cd] 120 mg PO Q24HR #30 cap Continue Simvastatin 10 mg PO HS Potassium Chloride [Klor-Con 20] 20 meq PO DAILY metFORMIN HCL 1,000 mg PO BID Metoprolol Tartrate [Lopressor] 100 mg PO BID Insulin Regular, Human [NovoLIN R] See Protocol SQ TID Lisinopril 5 mg PO DAILY Gabapentin 400 mg PO BID Furosemide [Lasix] 80 mg PO BID Multivitamins, Thera [Multivitamin (formulary)] 1 tab PO DAILY Cinnamon Bark [Cinnamon] 500 mg PO BID Hydrocodone/Acetaminophen [[place] 10-325 Tablet] 1 tab PO Q6H PRN PRN Reason: Pain Tamsulosin HCl [Flomax] 0.4 mg PO HS Discontinued Warfarin Sodium [Coumadin] 6 mg PO DAILY Insulin Glargine [Lantus] See Protocol SQ HS Discharge Medication List Furosemide [Lasix] 80 mg PO BID 06/15/16 [History] Gabapentin 400 mg PO BID 06/15/16 [History] Insulin Regular, Human [NovoLIN R] See Protocol SQ TID 06/15/16 [History] Lisinopril 5 mg PO DAILY 06/15/16 [History] Metoprolol Tartrate [Lopressor] 100 mg PO BID 06/15/16 [History] Multivitamins, Thera [Multivitamin (formulary)] 1 tab PO DAILY 06/15/16 [History ] Potassium Chloride [Klor-Con 20] 20 meq PO DAILY 06/15/16 [History] Simvastatin 10 mg PO HS 06/15/16 [History] metFORMIN HCL 1,000 mg PO BID 06/15/16 [History] Cinnamon Bark [Cinnamon] 500 mg PO BID 03/17/17 [History] Hydrocodone/Acetaminophen [[place] 10-325 Tablet] 1 tab PO Q6H PRN 03/17/17 [ History] Tamsulosin HCl [Flomax] 0.4 mg PO HS 03/17/17 [History] Diltiazem Cd [Cardizem Cd] 120 mg PO Q24HR #30 cap 03/22/17 [Rx] Insulin Glargine [Lantus] 25 unit SQ HS vial 03/22/17 [Rx] Sulfamethox-Tmp 800-160Mg [Bactrim DS 800-160 mg] 1 tab PO Q12HR #20 tab [Rx] Warfarin [Coumadin] 3 mg PO DAILY #30 tab 03/22/17 [Rx] Follow up Appointment(s)/Referral(s): Wilton Cardoza MD [STAFF PHYSICIAN] - 2 Weeks (Patient already has scheduled appt for physician) Archie Garrison DO [Primary Care Provider] - 1-2 days (Patient already has scheduled appt for physician) Patient Instructions/Handouts: Kidney Stones (DC), Urinary Tract Infection in Men (DC), Elevated INR (DC) Activity/Diet/Wound Care/Special Instructions: Monitor PT/INR closely while on antibiotics. Discharge Disposition: HOME SELF-CARE
== END 2017-03-22 17:59 | disposition home or self-care (01) | DRG 872 ==
LOC: EC 12:22 → 6SEL 19:37 → 5MS5E 03-21 06:41
PROVIDERS: ADMIT Internal Medicine; ATTEND Internal Medicine
DX: A41.50 Gram-negative sepsis, unspecified (principal); N17.9 Acute kidney failure, unspecified; Z68.41 Body mass index [BMI] 40.0-44.9, adult; N39.0 Urinary tract infection, site not specified; E66.9 Obesity, unspecified; E11.40 Type 2 diabetes mellitus with diabetic neuropathy, unspecified; I11.0 Hypertensive heart disease with heart failure; I50.9 Heart failure, unspecified; E11.65 Type 2 diabetes mellitus with hyperglycemia; I48.2 Chronic atrial fibrillation; N20.0 Calculus of kidney; D63.8 Anemia in other chronic diseases classified elsewhere; Z86.718 Personal history of other venous thrombosis and embolism; Z87.891 Personal history of nicotine dependence; R79.1 Abnormal coagulation profile; T45.515A Adverse effect of anticoagulants, initial encounter; Z79.84 Long term (current) use of oral hypoglycemic drugs; Z79.01 Long term (current) use of anticoagulants; Z79.4 Long term (current) use of insulin; Z79.899 Other long term (current) drug therapy
CPT/HCPCS: 36415; 70450; 76770; 80053; 81001; 82550; 82553; 83036; 83605; 83735; 84484; 85025; 85610; 85730; 87040; 87077; 87086; 87186; 93005; 96361; 96365; 96366; 99285

== ENCOUNTER → 2017-04-10 | Outpatient (CLI) | payer OTHER ==
--- NOTE | 2017-04-11 06:43 | XR ---
EXAMINATION TYPE: XR lumbosacral spine min 4V DATE OF EXAM ORDERED: 04/10/2017 HISTORY: [id number] lumbago. COMPARISON: None. FINDINGS: There is extensive spondylosis deformans and hypertrophic spondylosis. There is a mild lev oscoliosis. There is bridging osteophytes present at virtually all levels with relative sparing of L3 -4 and L5-S1. There is extensive facet arthropathy. The pedicles are difficult to visualize due to th e hypertrophic bone formation. There is a degenerative grade 1 spondylolisthesis of L5 on S1. There i s mild fusiform dilatation of the distal abdominal aorta which measures 4.1 cm without allowing for m agnification. IMPRESSION: 1. NO ACUTE OSSEOUS LESION. 2. EXTENSIVE INTRAHEPATIC DEGENERATIVE CHANGE. 3. POSSIBLE AORTIC ANEURYSM. AORTIC ULTRASOUND WOULD BE SUGGESTED.
== END ==
LOC: RADXRYALE 09:40
PROVIDERS: ATTEND Physician Assistant Medical
DX: M47.816 Spondylosis without myelopathy or radiculopathy, lumbar region (principal)
CPT/HCPCS: 72110

== ENCOUNTER → 2017-04-22 | Outpatient (CLI) | payer OTHER | END | disposition home or self-care (01) | LOC: RADMRIMAIN 08:16 | PROVIDERS: ATTEND Physician Assistant Medical | DX: Z53.9 Procedure and treatment not carried out, unspecified reason (principal) ==

== ENCOUNTER → 2017-04-26 | Outpatient (CLI) | payer OTHER ==
[2017-04-26 14:46] LABS: Basophils # (A) 0.1 k/uL (0-0.2); Basophils % (A) 1 %; CH 26.7; CHCM 30.9; Eosinophils # (A) 0.1 k/uL (0-0.7); Eosinophils % (A) 2 %; HCT 34.5 % (39.0-53.0); HDW 2.93; Hypochromasia Moderate; Luc # (Auto) 0.21; Luc % (Auto) 2; Lymphocytes # (A) 1.5 k/uL (1.0-4.8); Lymphocytes % (A) 17 %; MCH 27.6 pg (25.0-35.0); MCHC 31.9 g/dL (31.0-37.0); MCV 86.5 fL (80.0-100.0); Mean Platelet Volume 6.8; Monocytes # (A) 0.5 k/uL (0-1.0); Monocytes % (A) 5 %; Neutrophils # (A) 6.5 k/uL (1.3-7.7); Neutrophils % (A) 74 %; RBC 3.99 m/uL (4.30-5.90); RDW 13.9 % (11.5-15.5); WBC 8.9 k/uL (3.8-10.6)
[2017-04-26 14:58] LABS: Anion Gap 14 mmol/L; Blood Urea Nitrogen 9 mg/dL (9-20); Calcium 9.4 mg/dL (8.4-10.2); Carbon Dioxide 26 mmol/L (22-30); Chloride 103 mmol/L (98-107); Glucose 110 mg/dL (74-99); Non-African American GFR(MDRD) >60 (>60 ml/min/1.73 sqM); Potassium 4.8 mmol/L (3.5-5.1); Sodium 143 mmol/L (137-145)
== END | disposition home or self-care (01) ==
LOC: LABPAT 14:01
PROVIDERS: ATTEND Urology
DX: Z01.810 Encounter for preprocedural cardiovascular examination (principal); Z01.812 Encounter for preprocedural laboratory examination; I48.91 Unspecified atrial fibrillation; I10 Essential (primary) hypertension; N20.0 Calculus of kidney; E11.9 Type 2 diabetes mellitus without complications; R35.0 Frequency of micturition; R31.0 Gross hematuria
CPT/HCPCS: 80048; 85025; 87077; 87086; 87186

== ENCOUNTER → 2017-05-11 | Outpatient (CLI) | payer OTHER ==
--- NOTE | 2017-05-11 17:03 | CT ---
EXAMINATION TYPE: CT abdomen pelvis wo con DATE OF EXAM: 05/11/2017 COMPARISON: 02/16/2017 HISTORY: Kidney stone. CT DLP: 2724.7 mGycm Examination of the solid and hollow viscera is limited given the lack of contrast. FINDINGS: LUNG BASES: No evidence for nodule. No evidence for infiltrate. LIVER/GB: The gallbladder is contracted and demonstrates cholelithiasis. No space-occupying hepatic l esion. PANCREAS: No pancreatic mass identified. No inflammatory process seen. SPLEEN: No evidence for splenomegaly. No intrasplenic lesions seen. ADRENALS: No adrenal nodules identified. No evidence for thickening. KIDNEYS: Nonobstructing calculi lower pole left kidney measure 8.8 mm and 4 mm respectively. There is no evidence for hydronephrosis or hydroureter. Nonspecific left renal mass is identified. BOWEL: Appendix has a normal appearance. No evidence of bowel obstruction. No inflammatory process. S cattered sigmoid diverticulosis without diverticulitis. Lymph nodes: No evidence for adenopathy greater than 1 cm. Abdominal aorta: Mild aneurysmal dilatation of the infrarenal abdominal aorta measuring 3.1 cm. No ev idence for complicating factor. Genital organs: central prostate calcifications identified. Other: Severe degenerative changes lumbar spine. IMPRESSION: 1. STABLE NONOBSTRUCTING LEFT-SIDED NEPHROLITHIASIS. 2. CHOLELITHIASIS. 3. UNCOMPLICATED SIGMOID DIVERTICULOSIS.
== END | disposition home or self-care (01) ==
LOC: RADCTMAIN 15:56
PROVIDERS: ATTEND Urology
DX: N20.0 Calculus of kidney (principal); K80.20 Calculus of gallbladder without cholecystitis without obstruction; K57.30 Diverticulosis of large intestine without perforation or abscess without bleeding
CPT/HCPCS: 74176

== ENCOUNTER → 2017-05-24 | Outpatient (CLI) | payer OTHER ==
--- NOTE | 2017-05-24 11:52 | NM ---
EXAMINATION TYPE: NM hepatobiliary wo EF DATE OF EXAM: 05/24/2017 COMPARISON: CT abdomen pelvis 05/11/2017 HISTORY: Right upper quadrant pain, R 10.11 TECHNIQUE: After the intravenous administration of 5.3 mCi Tc 99m Mebrofenin hepatobiliary scintigrap hy is performed. Immediate images post injection. FINDINGS: Gallbladder is not definitively visualized with certainty despite delayed imaging. Small bowel shows activity at 10 minutes. Prompt homogenous uptake of the radiopharmaceutical noted within the liver. IMPRESSION: Findings could be due to cholecystitis.
== END | disposition home or self-care (01) ==
LOC: RADNMMAIN 06:34
PROVIDERS: ATTEND Family Medicine
DX: R10.11 Right upper quadrant pain (principal)
CPT/HCPCS: 78226; A9537

== ENCOUNTER → 2017-06-15 | Outpatient (CLI) | payer OTHER ==
--- NOTE | 2017-06-15 10:54 | XR ---
EXAMINATION TYPE: XR abdomen 1V DATE OF EXAM: 06/15/2017 COMPARISON: NONE HISTORY: 02/20/2017 TECHNIQUE: One view abdominal series FINDINGS: The osseous structures are intact. The bowel gas pattern is nonspecific. Arthropathy of the hip join ts with chronic acetabular labral tear suspected. Hypertrophic and degenerative change of the spine. Surgical clips in the gallbladder fossa. Extensive retained fecal debris. Punctate calcifications overlying the left kidney compatible with reported history of renal calcifica tions. IMPRESSION: 1. Nonspecific abdomen with extensive retained fecal debris. There are couple prominent small bowel l oops in the left mid abdomen which could be related to localized ileus. Partial obstruction felt less likely but not entirely excluded. 2. Left-sided 5 mm or less nephrolithiasis.
== END | disposition home or self-care (01) ==
LOC: RADXRMAIN 10:32
PROVIDERS: ATTEND Urology
DX: N20.0 Calculus of kidney (principal)
CPT/HCPCS: 74000

== ENCOUNTER 2018-05-28 04:16 | Inpatient (IN) | payer OTHER ==
[2018-05-28] MEDS ORDERED: PIPERACILLIN-TAZOBACTAM 3.375 GM in DEXTROSE/WATER 1 50ML.BAG IVPB STA (04:31)
[2018-05-28] MEDS ORDERED: VANCOMYCIN IV PER PHARMACY 1 EACH MISC MISCELLANE PRN ×2 (04:31→13:28)
[2018-05-28] MEDS ORDERED: CEFEPIME 1 GM in SODIUM CHLORIDE 0.9% 50 ML IVPB STA (04:34)
--- NOTE | 2018-05-28 04:46 | ED ---
General Adult HPI - General Chief complaint: Extremity Problem,Nontraumatic Stated complaint: Leg swelling/redness/pain Time Seen by Provider: 05/28/18 04:26 Source: patient Mode of arrival: wheelchair Limitations: no limitations - History of Present Illness Initial comments: 62 yo obese diabetic male presents to the emergency department for evaluation of left lower extremity swelling and redness. Patient reports that he has a history of diabetic foot ulcers requiring toe amputation in the past so he tries to be hypervigilant about checking his feet. He states that on Monday he noticed some redness about mid calf and some swelling in his left calf which was worse than his baseline. Patient states that by the end of the day he noted that the redness had extended up to his entire calf just below his knee and the swelling had progressively worsened. He did have some pain with standing but was still able to ambulate. Patient thought the edema in his lower extremity may be related to walking around all day so he went to bed with his leg elevated. However he woke around 2 AM with subjective fever, chills and sweating. He noticed the redness and continued to spread and the edema has not improved at all with laying flat. That time he decided to come to the ER for further evaluation. - Related Data Home Medications Medication Instructions Recorded Confirmed Furosemide [Lasix] 80 mg PO BID PRN 06/15/16 04/26/17 Gabapentin 400 mg PO BID 06/15/16 04/26/17 Insulin Regular, Human [NovoLIN R] See Protocol SQ TID 06/15/16 04/26/17 Lisinopril 5 mg PO DAILY 06/15/16 04/26/17 Metoprolol Tartrate [Lopressor] 100 mg PO BID 06/15/16 04/26/17 Multivitamins, Thera [Multivitamin 1 tab PO DAILY 06/15/16 04/26/17 (formulary)] Potassium Chloride [Klor-Con 20] 20 meq PO DAILY 06/15/16 04/26/17 Simvastatin 10 mg PO HS 06/15/16 04/26/17 metFORMIN HCL 1,000 mg PO BID 06/15/16 04/26/17 Cinnamon Bark [Cinnamon] 500 mg PO BID 03/17/17 04/26/17 Hydrocodone/Acetaminophen [[place] 1 tab PO Q6H PRN 03/17/17 04/26/17 10-325 Tablet] Diltiazem Cd [Cardizem Cd] 120 mg PO QAM 04/26/17 04/26/17 Previous Rx's Medication Instructions Recorded Warfarin [Coumadin] 3 mg PO DAILY #30 tab 03/22/17 Allergies Allergy/AdvReac Type Severity Reaction Status Date / Time No Known Allergies Allergy Verified 05/28/18 04:24 Review of Systems ROS Statement: Those systems with pertinent positive or pertinent negative responses have been documented in the HPI. ROS Other: All systems not noted in ROS Statement are negative. Past Medical History Past Medical History: Atrial Fibrillation, Heart Failure, Diabetes Mellitus, Deep Vein Thrombosis (DVT) Additional Past Medical History / Comment(s): IDDM type II, DVT R lower extremity, irregular heart rhythm, neuropathy bilateral legs/feet. kidney stones History of Any Multi-Drug Resistant Organisms: None Reported Past Surgical History: Cholecystectomy Additional Past Surgical History / Comment(s): L knee arthroscopy, amputation 2nd and 3rd toe, L foot 06/22/16 Past Anesthesia/Blood Transfusion Reactions: No Reported Reaction Past Psychological History: No Psychological Hx Reported Smoking Status: Never smoker Past Alcohol Use History: Occasional Past Drug Use History: None Reported - Past Family History Father Family Medical History: COPD Additional Family Medical History / Comment(s): Father of emphysema at the age of 57 yrs. Mother Family Medical History: Cancer, Diabetes Mellitus Additional Family Medical History / Comment(s): Mother at the age of 66 yrs. Breast Cancer Sister(s) Family Medical History: Cancer Additional Family Medical History / Comment(s): Breast cancer General Exam Limitations: no limitations General appearance: alert, in no apparent distress Head exam: Present: atraumatic, normocephalic Eye exam: Present: normal appearance, PERRL ENT exam: Present: normal exam Respiratory exam: Absent: respiratory distress Cardiovascular Exam: Present: regular rate GI/Abdominal exam: Present: soft. Absent: distended Rectal exam: Present: deferred Left Lower Leg exam: Present: swelling, erythema Course Vital Signs 05/28/18 05/28/18 05/28/18 04:21 05:16 06:08 Temperature 97.6 F 99.4 F 97.8 F Pulse Rate 73 71 66 Respiratory 18 18 18 Rate Blood Pressure 151/85 131/64 121/70 O2 Sat by Pulse 99 95 100 Oximetry EKG Findings - EKG Comments: EKG Findings:: EKG obtained at 5:11 AM. Atrial fibrillation with a rate of 76, QRS is 98, QTC is 441, there are no acute ST elevations or depressions or evidence of acute ischemia or infarction. Medical Decision Making - Medical Decision Making Patient was seen and evaluated, history was obtained from the patient Physical exam with a swollen, erythematous left lower extremity, significant pitting edema was noted the extremity was noted to have some petechia and blistering Concern for soft tissue infection, sepsis workup as well as x-ray of the soft tissue was ordered X-ray reveals no free air in the soft tissues, significantly calcified vessels were noted With no leukocytosis, INR is 1.7 Considering the patient's history of significant infections, physical exam with significant erythema petechia circumferential cellulitis to the knee do feel he warrants admission for IV antibiotics. Patient care was discussed with [facility] hospitalist group Dr. Fletcher who accepts the admission - Lab Data Result diagrams: 05/28/18 04:45 05/28/18 04:45 Lab Results 05/28/18 05/28/18 05/28/18 Range/Units 04:45 04:45 04:45 WBC 7.9 (3.8-10.6) k/uL RBC 4.30 (4.30-5.90) m/uL Hgb 12.7 L (13.0-17.5) gm/dL Hct 37.7 L (39.0-53.0) % MCV 87.7 (80.0-100.0) fL MCH 29.5 (25.0-35.0) pg MCHC 33.6 (31.0-37.0) g/dL RDW 13.6 (11.5-15.5) % Plt Count 161 (150-450) k/uL Neutrophils % 71 % Lymphocytes % 16 % Monocytes % 8 % Eosinophils % 3 % Basophils % 0 % Neutrophils # 5.6 (1.3-7.7) k/uL Lymphocytes # 1.3 (1.0-4.8) k/uL Monocytes # 0.6 (0-1.0) k/uL Eosinophils # 0.2 (0-0.7) k/uL Basophils # 0.0 (0-0.2) k/uL PT (9.0-12.0) sec INR (<1.2) APTT (22.0-30.0) sec Sodium 142 (137-145) mmol/L Potassium 3.9 (3.5-5.1) mmol/L Chloride 109 H (98-107) mmol/L Carbon Dioxide 23 (22-30) mmol/L Anion Gap 10 mmol/L BUN 16 (9-20) mg/dL Creatinine 0.75 (0.66-1.25) mg/dL Est GFR (CKD-EPI)AfAm >90 (>60 ml/min/1.73 sqM) Est GFR (CKD-EPI)NonAf >90 (>60 ml/min/1.73 sqM) Glucose 202 H (74-99) mg/dL Plasma Lactic Acid Joel 1.9 (0.7-2.0) mmol/L Calcium 9.2 (8.4-10.2) mg/dL Total Bilirubin 0.9 (0.2-1.3) mg/dL AST 29 (17-59) U/L ALT 33 (21-72) U/L Alkaline Phosphatase 76 (38-126) U/L Total Protein 6.5 (6.3-8.2) g/dL Albumin 3.8 (3.5-5.0) g/dL Urine Color Urine Appearance (Clear) Urine pH (5.0-8.0) Ur Specific [place] (1.001-1.035) Urine Protein (Negative) Urine Glucose (UA) (Negative) Urine Ketones (Negative) Urine Blood (Negative) Urine Nitrite (Negative) Urine Bilirubin (Negative) Urine Urobilinogen (<2.0) mg/dL Ur Leukocyte Esterase (Negative) Urine RBC (0-5) /hpf Urine WBC (0-5) /hpf Urine Mucus (None) /hpf 05/28/18 05/28/18 Range/Units 04:45 04:55 WBC (3.8-10.6) k/uL RBC (4.30-5.90) m/uL Hgb (13.0-17.5) gm/dL Hct (39.0-53.0) % MCV (80.0-100.0) fL MCH (25.0-35.0) pg MCHC (31.0-37.0) g/dL RDW (11.5-15.5) % Plt Count (150-450) k/uL Neutrophils % % Lymphocytes % % Monocytes % % Eosinophils % % Basophils % % Neutrophils # (1.3-7.7) k/uL Lymphocytes # (1.0-4.8) k/uL Monocytes # (0-1.0) k/uL Eosinophils # (0-0.7) k/uL Basophils # (0-0.2) k/uL PT 15.5 H (9.0-12.0) sec INR 1.7 H (<1.2) APTT 27.5 (22.0-30.0) sec Sodium (137-145) mmol/L Potassium (3.5-5.1) mmol/L Chloride (98-107) mmol/L Carbon Dioxide (22-30) mmol/L Anion Gap mmol/L BUN (9-20) mg/dL Creatinine (0.66-1.25) mg/dL Est GFR (CKD-EPI)AfAm (>60 ml/min/1.73 sqM) Est GFR (CKD-EPI)NonAf (>60 ml/min/1.73 sqM) Glucose (74-99) mg/dL Plasma Lactic Acid Joel (0.7-2.0) mmol/L Calcium (8.4-10.2) mg/dL Total Bilirubin (0.2-1.3) mg/dL AST (17-59) U/L ALT (21-72) U/L Alkaline Phosphatase (38-126) U/L Total Protein (6.3-8.2) g/dL Albumin (3.5-5.0) g/dL Urine Color Yellow Urine Appearance Clear (Clear) Urine pH 5.5 (5.0-8.0) Ur Specific [place] 1.023 (1.001-1.035) Urine Protein 1+ H (Negative) Urine Glucose (UA) 3+ H (Negative) Urine Ketones Negative (Negative) Urine Blood Negative (Negative) Urine Nitrite Negative (Negative) Urine Bilirubin Negative (Negative) Urine Urobilinogen 3.0 (<2.0) mg/dL Ur Leukocyte Esterase Negative (Negative) Urine RBC 2 (0-5) /hpf Urine WBC 1 (0-5) /hpf Urine Mucus Occasional H (None) /hpf Disposition Clinical Impression: Cellulitis, Venous stasis, Foot ulcer, left, Diabetes mellitus type 2, uncontrolled Disposition: ADMITTED IP TO THIS HOSP Condition: Fair Decision Time: 05:00
[2018-05-28 04:58] LABS: Basophils % (A) 0 %; Eosinophils # (A) 0.2 k/uL (0-0.7); Eosinophils % (A) 3 %; HCT 37.7 % (39.0-53.0); HGB 12.7 gm/dL (13.0-17.5); Lymphocytes # (A) 1.3 k/uL (1.0-4.8); Lymphocytes % (A) 16 %; MCH 29.5 pg (25.0-35.0); MCHC 33.6 g/dL (31.0-37.0); MCV 87.7 fL (80.0-100.0); Mean Platelet Volume 8.5; Monocytes # (A) 0.6 k/uL (0-1.0); Monocytes % (A) 8 %; Neutrophils # (A) 5.6 k/uL (1.3-7.7); Neutrophils % (A) 71 %; Platelet Count 161 k/uL (150-450); RDW 13.6 % (11.5-15.5); WBC 7.9 k/uL (3.8-10.6)
[2018-05-28] MEDS ORDERED: VANCOMYCIN 2,250 MG in SODIUM CHLORIDE 0.9% 500 ML IVPB ONE (05:00)
[2018-05-28] MEDS: SODIUM CHLORIDE 0.9% 500 ML IV SCH (05:05)
[2018-05-28 05:06] LABS: ALT 33 U/L (21-72); AST 29 U/L (17-59); Albumin 3.8 g/dL (3.5-5.0); Alkaline Phosphatase 76 U/L (38-126); Anion Gap 10 mmol/L; Blood Urea Nitrogen 16 mg/dL (9-20); Calcium 9.2 mg/dL (8.4-10.2); Carbon Dioxide 23 mmol/L (22-30); Chloride 109 mmol/L (98-107); Glucose 202 mg/dL (74-99); Potassium 3.9 mmol/L (3.5-5.1); Sodium 142 mmol/L (137-145); Total Bilirubin 0.9 mg/dL (0.2-1.3); Total Protein 6.5 g/dL (6.3-8.2)
[2018-05-28 05:10] LABS: INR 1.7 (<1.2); Partial Thromboplastin Time 27.5 sec (22.0-30.0); Prothrombin Time 15.5 sec (9.0-12.0)
[2018-05-28 05:22] LABS: Appearance,Urine Clear (Clear); Bilirubin,Urine Negative (Negative); Blood,Urine Negative (Negative); Color,Urine Yellow; Glucose,Urine (UA) 3+ (Negative); Ketones,Urine Negative (Negative); Leukocyte Esterase,Urine Negative (Negative); Mucus,Urine Occasional /hpf; Nitrite,Urine Negative (Negative); PH, Urine 5.5 (5.0-8.0); Protein,Urine 1+ (Negative); RBC,Urine 2 /hpf (0-5); Specific Gravity,Urine 1.023 (1.001-1.035); WBC,Urine 1 /hpf (0-5)
[2018-05-28] MEDS ORDERED: NALOXONE 0.4 MG/ML 1 ML VIAL IV PRN (05:52)
--- NOTE | 2018-05-28 06:02 | XR ---
EXAM: XR Left Tibia and Fibula, 2 Views CLINICAL HISTORY: Reason: Pain TECHNIQUE: Frontal and lateral views of the left tibia and fibula. COMPARISON: No relevant prior studies available. FINDINGS: Bones/joints: Degenerative changes with joint space narrowing of the medial and lateral joint space compartment of the knee. No acute fracture. No dislocation. Soft tissues: Extensive soft tissue calcifications. IMPRESSION: No evidence for fracture or malalignment the left tibia or fibula
[2018-05-28 07:42] LABS: Glucose,Whole Blood 203 mg/dL (75-99)
[2018-05-28 11:42] LABS: Glucose,Whole Blood 265 mg/dL (75-99)
[2018-05-28] MEDS: INSULIN ASPART 100 UNIT/ML 1 ML 10 ML VIAL SQ SCH ×3 (13:11→22:32)
[2018-05-28] MEDS: POTASSIUM CHLORIDE ER 20 MEQ TAB.ER PO SCH (13:50)
[2018-05-28] MEDS: LISINOPRIL 5 MG TAB PO SCH (13:50)
[2018-05-28] MEDS: FUROSEMIDE 80 MG TAB PO SCH (13:51)
[2018-05-28] MEDS: PIPERACILLIN-TAZOBACTAM 3.375 GM in DEXTROSE/WATER 1 50ML.BAG IVPB SCH (16:49)
[2018-05-28 17:29] LABS: Glucose,Whole Blood 263 mg/dL (75-99)
[2018-05-28] MEDS: metFORMIN 500 MG TAB PO SCH (18:05)
[2018-05-28] MEDS: WARFARIN 2 MG TAB PO SCH (18:07)
[2018-05-28 20:23] LABS: Hemoglobin A1C 8.6 % (4.0-6.0)
[2018-05-28 20:36] LABS: Glucose,Whole Blood 222 mg/dL (75-99)
[2018-05-28] MEDS ORDERED: NON-FORMULARY DRUG (Cinnamon Bark [Cinnamon] 500 MG) PO SCH (21:00)
[2018-05-28] MEDS: VANCOMYCIN 2,000 MG in SODIUM CHLORIDE 0.9% 500 ML IVPB SCH (21:50)
[2018-05-28] MEDS: METOPROLOL TARTRATE 50 MG TAB PO SCH (21:52)
[2018-05-28] MEDS: GABAPENTIN 400 MG CAP PO SCH (21:52)
[2018-05-28] MEDS: ATORVASTATIN 10 MG TAB PO SCH (21:52)
[2018-05-28] MEDS: INSULIN DETEMIR 100 UNIT/ML 10 ML VIAL SQ SCH (22:28)
[2018-05-28] MEDS: HYDROcodone/APAP 10-325MG 1 EACH TAB PO PRN (22:29)
--- NOTE | 2018-05-28 22:31 | P.HPIM ---
History of Present Illness H&P Date: 05/28/18 Chief Complaint: Left leg swelling and redness Patient is a 62-year-old male with a known history of diabetes type 2, chronic atrial fibrillation on anticoagulation with Coumadin, history of DVT and other multiple medical problems including morbid obesity came to ER with complaints of left lower activity swelling and redness worsening for the past 2 days. Patient has prior history of right lower extremity swelling and cellulitis previously. Patient does have history of left second and third toe amputation. He states that on Monday he noticed some redness about mid calf and some swelling in his left calf which was worse than his baseline. Patient states that by the end of the day he noted that the redness had extended up to his entire calf just below his knee and the swelling had progressively worsened. He did have some pain with standing but was still able to ambulate. Patient thought the edema in his lower extremity may be related to walking around all day so he went to bed with his leg elevated. However he woke around 2 AM with subjective fever, chills and sweating. He noticed the redness and continued to spread and the edema has not improved at all with laying flat. That time he decided to come to the ER for further evaluation. Review of Systems Constitutional: Patient denies any fever or chills . No generalized weakness or weight loss. Abdomen: Patient denied nausea vomiting and diarrhea and abdominal pain. Cardiovascular: Patient denies any chest pain or short of breath no palpitations. Respiratory: patient denied any cough is from production. No shortness of breath Neurologic: Patient denied any numbness or tingling headache. Musculoskeletal: Left leg swelling and redness and pain. Patient denies any complaints of joint swelling or deformity. Skin: Negative Psychiatric: Negative Endocrine: No heat or cold intolerance. No recent weight gain. Genitourinary: No dysuria or hematuria. All other 14 point ROS negative except the above Past Medical History Past Medical History: Atrial Fibrillation, Heart Failure, Diabetes Mellitus, Deep Vein Thrombosis (DVT) Additional Past Medical History / Comment(s): IDDM type II, DVT R lower extremity, irregular heart rhythm, neuropathy bilateral legs/feet. kidney stones History of Any Multi-Drug Resistant Organisms: None Reported Past Surgical History: Cholecystectomy Additional Past Surgical History / Comment(s): L knee arthroscopy, amputation 2nd and 3rd toe, L foot 06/22/16 Past Anesthesia/Blood Transfusion Reactions: No Reported Reaction Past Psychological History: No Psychological Hx Reported Smoking Status: Never smoker Past Alcohol Use History: Occasional Past Drug Use History: None Reported - Past Family History Father Family Medical History: COPD Additional Family Medical History / Comment(s): Father of emphysema at the age of 57 yrs. Mother Family Medical History: Cancer, Diabetes Mellitus Additional Family Medical History / Comment(s): Mother at the age of 66 yrs. Breast Cancer Sister(s) Family Medical History: Cancer Additional Family Medical History / Comment(s): Breast cancer Medications and Allergies Home Medications Medication Instructions Recorded Confirmed Type Furosemide [Lasix] 80 mg PO DAILY 06/15/16 05/28/18 History Gabapentin 400 mg PO BID 06/15/16 05/28/18 History Insulin Regular, Human [NovoLIN R] See Protocol SQ TID 06/15/16 05/28/18 History Lisinopril 5 mg PO DAILY 06/15/16 05/28/18 History Metoprolol Tartrate [Lopressor] 100 mg PO BID 06/15/16 05/28/18 History Multivitamins, Thera [Multivitamin 2 tab PO DAILY 06/15/16 05/28/18 History (formulary)] Potassium Chloride [Klor-Con 20] 20 meq PO DAILY 06/15/16 05/28/18 History Simvastatin 10 mg PO HS 06/15/16 05/28/18 History metFORMIN HCL 1,000 mg PO BID 06/15/16 05/28/18 History Cinnamon Bark [Cinnamon] 500 mg PO BID 03/17/17 05/28/18 History Hydrocodone/Acetaminophen [[place] 1 tab PO Q6H PRN 03/17/17 05/28/18 History 10-325 Tablet] Cholecalciferol [Vitamin D3] 1,000 unit PO DAILY 05/28/18 05/28/18 History Gabapentin [Neurontin] 400 mg PO BID PRN 05/28/18 05/28/18 History Insulin Glargine [Lantus] 20 unit SQ HS 05/28/18 05/28/18 History Warfarin [Coumadin] 4 mg PO TUFR 05/28/18 05/28/18 History Warfarin [Coumadin] 7 mg PO SUMOWETHSA 05/28/18 05/28/18 History Allergies Allergy/AdvReac Type Severity Reaction Status Date / Time No Known Allergies Allergy Verified 05/28/18 09:37 Physical Exam Vitals: Vital Signs Temp Pulse Pulse Resp BP BP Pulse Ox 05/28/18 07:45 98.3 F 61 18 111/76 95 05/28/18 06:08 97.8 F 66 18 121/70 100 05/28/18 05:16 99.4 F 71 18 131/64 95 05/28/18 04:21 97.6 F 73 18 151/85 99 Intake and Output 05/27/18 05/28/18 05/28/18 22:59 06:59 14:59 Other: Weight 149.685 kg PHYSICAL EXAMINATION: Patient is lying in the bed comfortably, no acute distress, awake alert and oriented.. HEENT: Normocephalic. Neck is supple. Pupils reactive. Nostrils clear. Oral cavity is moist. Ears reveal no drainage. Neck reveals no JVD, carotid bruits, or thyromegaly. CHEST EXAMINATION: Trachea is central. Symmetrical expansion. Lung hernandez clear to auscultation and percussion. CARDIAC: Normal S1, S2 with no gallops. No murmurs ABDOMEN: Soft. Bowel sounds normal. No organomegaly. No abdominal bruits. Extremities: Patient does have left lower extremity swelling and redness up to the knee. Tender to palpation and warm.. No clubbing or cyanosis Left second and third toe amputation. Neurologically awake, alert, oriented x3 with well-coordinated movements. No focal deficits noted Skin: No rash or skin lesions. Psychiatric: Coperative. Nonsuicidal Musculoskeletal: No joint swelling or deformity. Normal range of motion. Results CBC & Chem 7: 05/28/18 04:45 05/28/18 04:45 Labs: Abnormal Lab Results - Last 24 Hours (Table) 05/28/18 05/28/18 05/28/18 Range/Units 04:45 04:45 04:45 Hgb 12.7 L (13.0-17.5) gm/dL Hct 37.7 L (39.0-53.0) % PT 15.5 H (9.0-12.0) sec INR 1.7 H (<1.2) Chloride 109 H (98-107) mmol/L Glucose 202 H (74-99) mg/dL POC Glucose (mg/dL) (75-99) mg/dL Urine Protein (Negative) Urine Glucose (UA) (Negative) Urine Mucus (None) /hpf 05/28/18 05/28/18 Range/Units 04:55 07:31 Hgb (13.0-17.5) gm/dL Hct (39.0-53.0) % PT (9.0-12.0) sec INR (<1.2) Chloride (98-107) mmol/L Glucose (74-99) mg/dL POC Glucose (mg/dL) 203 H (75-99) mg/dL Urine Protein 1+ H (Negative) Urine Glucose (UA) 3+ H (Negative) Urine Mucus Occasional H (None) /hpf Thrombosis Risk Factor Assmnt - Choose All That Apply Any of the Below Risk Factors Present?: Yes Each Factor Represents 1 point: Heart failure (<1month), Medical pt on bed rest , Obesity (BMI >25), Swollen legs (current) Other Risk Factors: Yes Each Risk Factor Represents 3 Points: History of DVT/PE Thrombosis Risk Factor Assessment Total Risk Factor Score: 7 Thrombosis Risk Factor Assessment Level: High Risk Assessment and Plan Assessment: Acute Left lower extremity cellulitis extending up to knee Diabetes type 2. Insulin-dependent Chronic atrial fibrillation on anticoagulation with Coumadin. Coumadin monitoring History of DVT Bilateral lower extremities venous stasis changes. 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 We will follow blood cultures and ID consult. Continue with Coumadin dosing and blood sugar control. Pain management and further recommendations based on the clinical course. Prognosis is guarded with multiple medical problems and comorbid conditions. Time with Patient: Greater than 30
[2018-05-29] MEDS: PIPERACILLIN-TAZOBACTAM 3.375 GM in DEXTROSE/WATER 1 50ML.BAG IVPB SCH ×3 (00:37→16:50)
[2018-05-29] MEDS: VANCOMYCIN 2,000 MG in SODIUM CHLORIDE 0.9% 500 ML IVPB SCH ×2 (06:03→18:28)
[2018-05-29 07:17] LABS: Glucose,Whole Blood 198 mg/dL (75-99)
[2018-05-29 08:15] LABS: INR 2.4 (<1.2); Prothrombin Time 21.4 sec (9.0-12.0)
[2018-05-29] MEDS: POTASSIUM CHLORIDE ER 20 MEQ TAB.ER PO SCH (08:59)
[2018-05-29] MEDS: FUROSEMIDE 80 MG TAB PO SCH (08:59)
[2018-05-29] MEDS: METOPROLOL TARTRATE 50 MG TAB PO SCH ×2 (08:59→20:57)
[2018-05-29] MEDS: CHOLECALCIFEROL 1,000 UNIT TAB PO SCH (08:59)
[2018-05-29] MEDS: MULTIVITAMINS, THERA 1 EACH TAB PO SCH (09:00)
[2018-05-29] MEDS: GABAPENTIN 400 MG CAP PO SCH ×2 (09:00→20:56)
[2018-05-29] MEDS: INSULIN ASPART 100 UNIT/ML 1 ML 10 ML VIAL SQ SCH ×4 (09:03→20:56)
[2018-05-29] MEDS: LISINOPRIL 5 MG TAB PO SCH (09:05)
[2018-05-29] MEDS: metFORMIN 500 MG TAB PO SCH ×2 (10:21→17:36)
[2018-05-29 12:36] LABS: Glucose,Whole Blood 194 mg/dL (75-99)
[2018-05-29 17:07] LABS: Glucose,Whole Blood 211 mg/dL (75-99)
[2018-05-29] MEDS: WARFARIN 2 MG TAB PO SCH (17:36)
[2018-05-29 20:32] LABS: Glucose,Whole Blood 153 mg/dL (75-99)
[2018-05-29] MEDS: ATORVASTATIN 10 MG TAB PO SCH (20:55)
[2018-05-29] MEDS: INSULIN DETEMIR 100 UNIT/ML 10 ML VIAL SQ SCH (20:56)
--- NOTE | 2018-05-29 22:36 | CONS ---
CONSULTATION DATE OF SERVICE: 05/29/2018 REASON FOR CONSULTATION: Left lower extremity cellulitis. HISTORY OF PRESENT ILLNESS: The patient is a 62-year-old male with a past medical history significant for diabetes mellitus. He did have a history of diabetic foot infection with amputation of his second toe. The patient is presenting to the ER at [facility] with left leg swelling and redness that started over the weekend. The patient's redness progressed over the next 24 hours. At that point the patient came to the ER. The patient did have a callus on his left foot. Apparently the patient was scheduled to see his dental scheduler today for debridement of the same. The patient has underlying diabetic neuropathy and hence denies significant pain to the left leg area. Swelling and redness have been extending from the foot all the way to the knee area with diffuse swelling and redness. The patient did have slight drainage from the infected callus on the bottom of his wound. Patient has been complaining of rigors and chills. With these symptoms, the patient was evaluated by the ER physician. On arrival in the ER, the patient had a low-grade fever of 99.4. His white count was 7.9. His kidney function was normal at 0.75. Electrolytes were normal. The patient did have blood cultures obtained which are currently pending. RN did obtain some culture from his left foot wound. Infectious Disease was consulted for further recommendations regarding antibiotic therapy. REVIEW OF SYSTEMS: CONSTITUTIONAL: Positive for weakness along with chills. EYES: No complaint. ENT: No complaint. RESPIRATORY: No complaint. CARDIOVASCULAR: No complaint. GENITOURINARY: No complaint. GASTROINTESTINAL: No complaint. MUSCULOSKELETAL: As per HPI. INTEGUMENTARY: As per HPI. PSYCHOLOGICAL: No complaint. ENDOCRINE: No complaint. NEUROLOGICAL: No complaint. PAST MEDICAL HISTORY: 1. Diabetes mellitus. 2. History of DVT. 3. Diabetic foot infection. 4. Hypertension. 5. Anxiety. 6. Hyperlipidemia. 7. Peripheral neuropathy. PAST SURGICAL HISTORY: 1. Tonsillectomy. 2. Amputation of his left second toe. SOCIAL HISTORY: Denies smoking, drinking or drug use. FAMILY HISTORY: No pertinent findings noticed. ALLERGIES: NO KNOWN DRUG ALLERGIES. CURRENT MEDICATIONS: 1. Boyce. 2. Lipitor. 3. Vitamin D3. 4. Lasix. 5. Neurontin. 6. NovoLog. 7. Levemir. 8. Zestril. 9. Glucophage. 10.Lopressor. 11.Vancomycin, Pharmacy to dose. 12.Theragran. 13.Narcan. 14.Zosyn. 15.K-Dur. 16.Coumadin. PHYSICAL EXAMINATION: Blood pressure is 133/83 with a pulse of 79, temperature of 98, T-max 99. He is 98% on room air. General description is a middle-aged male lying in bed in no distress. No tachypnea or accessory muscle of respiration use. HEENT examination shows no pallor or scleral icterus. Oral mucosa membrane is dry. No pharyngeal erythema or thrush. NECK: Trachea is central. No thyromegaly. LUNGS: Unlabored breathing. Clear to auscultation anteriorly. HEART: S1, S2. Regular rate and rhythm. ABDOMEN: Soft. No tenderness. No guarding or rigidity. EXTREMITIES: Left leg with diffuse swelling and redness, slightly warm to touch. He does have a callus on the plantar aspect of his left foot with some purulent drainage; that has been cultured. Neurologically patient is awake, alert, oriented x3. Mood and affect normal. LABS: BUN of 16, creatinine 0.75. Electrolytes are normal. Liver enzymes are normal. Hemoglobin 12.6, white count 7.9. UA has been negative. The patient did have x-rays of the tibia and fibula which show no evidence of fracture or malalignment of the left tibia and fibula. DIAGNOSTIC IMPRESSION AND PLAN: Patient with a left diabetic foot infection in a patient who did have infected callus on the bottom of his left foot with secondary cellulitis of his left lower extremity; could be gram-positive skin maria; however, a gram-negative infection is not entirely excluded. The patient does have a history of underlying diabetes mellitus with a previous history of diabetic foot infection requiring amputation of his toe. PLAN: 1. We will obtain consultation with Dr. Neely, to whom the patient is known, for debridement of this infected callus and deep culture. 2. The patient will be treated with vancomycin, Pharmacy to dose, target of 15, while watching his kidney function closely, and Zosyn 3.375 grams q.8. 3. Abel the area of the redness. 4. Will follow up on clinical condition and culture to further adjust medication if needed. Thank you for this consultation. Will follow this patient along with you. MMODL / IJN: [id number] /
[2018-05-30] MEDS: PIPERACILLIN-TAZOBACTAM 3.375 GM in DEXTROSE/WATER 1 50ML.BAG IVPB SCH ×4 (00:30→23:40)
[2018-05-30] MEDS ORDERED: VANCOMYCIN TROUGH DUE 1 EACH MISC MISCELLANE ONE (05:00)
[2018-05-30 05:41] LABS: INR 2.6 (<1.2)
[2018-05-30] MEDS: VANCOMYCIN 2,000 MG in SODIUM CHLORIDE 0.9% 500 ML IVPB SCH ×2 (06:46→17:28)
[2018-05-30 07:11] LABS: Glucose,Whole Blood 191 mg/dL (75-99)
[2018-05-30] MEDS: GABAPENTIN 400 MG CAP PO SCH ×2 (07:46→21:49)
[2018-05-30] MEDS: INSULIN ASPART 100 UNIT/ML 1 ML 10 ML VIAL SQ SCH ×4 (07:46→21:50)
[2018-05-30] MEDS: CHOLECALCIFEROL 1,000 UNIT TAB PO SCH (07:46)
[2018-05-30] MEDS: POTASSIUM CHLORIDE ER 20 MEQ TAB.ER PO SCH (07:46)
[2018-05-30] MEDS: METOPROLOL TARTRATE 50 MG TAB PO SCH ×2 (07:46→21:49)
[2018-05-30] MEDS: LISINOPRIL 5 MG TAB PO SCH (07:46)
[2018-05-30] MEDS: metFORMIN 500 MG TAB PO SCH ×2 (07:46→17:27)
[2018-05-30] MEDS: FUROSEMIDE 80 MG TAB PO SCH (07:46)
[2018-05-30] MEDS: MULTIVITAMINS, THERA 1 EACH TAB PO SCH (07:47)
[2018-05-30] MEDS ORDERED: LIDOCAINE 1% INJ 10MG/ML (20 ML MDV) SQ ONE (08:00)
[2018-05-30 12:32] LABS: Glucose,Whole Blood 204 mg/dL (75-99)
[2018-05-30 17:25] LABS: Glucose,Whole Blood 229 mg/dL (75-99)
[2018-05-30] MEDS: WARFARIN 2 MG TAB PO SCH (17:25)
--- NOTE | 2018-05-30 17:35 | PN ---
PROGRESS NOTE DATE OF SERVICE: 05/30/2018. REASON FOR FOLLOWUP: Left diabetic foot infection with secondary cellulitis of the leg. INTERVAL HISTORY: The patient is currently afebrile. He is breathing comfortably. Overall swelling, redness, pain to the left leg is slightly decreased. The patient is waiting for the vascular surgery for debridement of the infected callus. No nausea, vomiting. No abdominal pain and no diarrhea. EXAMINATION: Blood pressure 126/72 with a pulse of 99, temperature of 97. He is 96% on room air. General description is a middle-aged male lying in bed in no distress. RESPIRATORY SYSTEM: Unlabored breathing. Clear to auscultation anteriorly. HEART: S1, S2. Regular rate and rhythm. ABDOMEN: Soft. No tenderness. LEFT LEG: Swelling persists. Redness slightly decreased. No drainage. LABS: Wound cultures currently pending. DIAGNOSTIC IMPRESSION AND PLAN: Patient with left diabetic foot infection in a patient who did have an infected callus on the plantar aspect of his left foot with secondary cellulitis, currently on vancomycin and Zosyn. Will continue while watching his kidney function closely. Await the removal of the infected callus to determine the depth of this infection and outpatient antibiotic therapy. Continue supportive care. MMODL / IJN: [id number] /
--- NOTE | 2018-05-30 21:02 | CONS ---
DATE OF CONSULTATION: 05/30/2018 This gentleman came to [facility] with a history of cellulitis, left lower extremity. The patient is known to me from the past. He had a left 2nd and 3rd toe amputation done by me in the past. The patient has history of diabetes, hypertension controlled with medication. EXAMINATION: Patient was seen in his room. NECK: Supple. Trachea central. CHEST: Clear to auscultation. ABDOMEN: Soft. Femoral pulses are palpable, dorsal pedis palpable. The patient has cellulitis of the left lower extremity. There is a dry callus on the plantar aspect of the left foot. There is no tenderness noted and no discharge noted from the callus. PLAN: Continue with IV antibiotic and we will use Silvadene cream for lower extremity. We will excise this callus electively. At this point, I see no tenderness, no discharge. We will just treat cellulitis with IV antibiotic and local care. When patient is stable, discharged and follow in the office. We will schedule for elective callus excision. MMODL / IJN: [id number] / CHARLEE
[2018-05-30 21:09] LABS: Glucose,Whole Blood 203 mg/dL (75-99)
[2018-05-30] MEDS: ATORVASTATIN 10 MG TAB PO SCH (21:49)
[2018-05-30] MEDS: INSULIN DETEMIR 100 UNIT/ML 10 ML VIAL SQ SCH (21:49)
[2018-05-30] MEDS: HYDROcodone/APAP 10-325MG 1 EACH TAB PO PRN (22:03)
--- NOTE | 2018-05-31 00:51 | P.PN ---
Subjective Progress Note Date: 05/29/18 Principal diagnosis: Left lower extremities cellulitis Patient is a 62-year-old male with a known history of diabetes type 2, chronic atrial fibrillation on anticoagulation with Coumadin, history of DVT and other multiple medical problems including morbid obesity came to ER with complaints of left lower activity swelling and redness worsening for the past 2 days. Patient has prior history of right lower extremity swelling and cellulitis previously. Patient does have history of left second and third toe amputation. He states that on Monday he noticed some redness about mid calf and some swelling in his left calf which was worse than his baseline. Patient states that by the end of the day he noted that the redness had extended up to his entire calf just below his knee and the swelling had progressively worsened. He did have some pain with standing but was still able to ambulate. Patient thought the edema in his lower extremity may be related to walking around all day so he went to bed with his leg elevated. However he woke around 2 AM with subjective fever, chills and sweating. He noticed the redness and continued to spread and the edema has not improved at all with laying flat. That time he decided to come to the ER for further evaluation. 05/29/2018 Patient's left lower the redness is improving. Otherwise patient was having some pulling drainage from the left great toe medial aspect of removing callus. Wound culture was sent. Currently on IV antibiotics. ID is following. Vascular surgery was consulted for further evaluation. Patient does have a history of left second and third toe amputation previously. No fever no chills. No other acute overnight issues. All other review of systems negative except the above Current medications reviewed Objective - Vital Signs Vital signs: Vital Signs Temp 97.1 F L 05/29/18 06:04 Pulse 77 05/29/18 06:04 Resp 18 05/29/18 06:04 BP 120/70 05/29/18 06:04 Pulse Ox 95 05/29/18 06:04 Intake & Output 05/28/18 05/29/18 05/29/18 18:59 06:59 18:59 Intake Total 1200 Output Total 750 2200 Balance 450 -2200 Weight 149.685 kg Intake: Oral 1200 Output: Urine 750 2200 Other: Voiding Method Toilet # Voids 2 - Exam PHYSICAL EXAMINATION: Patient is lying in the bed comfortably, no acute distress, awake alert and oriented.. HEENT: Normocephalic. Neck is supple. Pupils reactive. Nostrils clear. Oral cavity is moist. Ears reveal no drainage. Neck reveals no JVD, carotid bruits, or thyromegaly. CHEST EXAMINATION: Trachea is central. Symmetrical expansion. Lung hernandez clear to auscultation and percussion. CARDIAC: Normal S1, S2 with no gallops. No murmurs ABDOMEN: Soft. Bowel sounds normal. No organomegaly. No abdominal bruits. Extremities: Left lower extremities swelling and redness up to knee. Plantar callus infection with purulent drainage. No clubbing or cyanosis Neurologically awake, alert, oriented x3 with well-coordinated movements. No focal deficits noted Skin: No rash or skin lesions. Psychiatric: Coperative. Nonsuicidal Musculoskeletal: No joint swelling or deformity. Normal range of motion. - Labs CBC & Chem 7: 05/28/18 04:45 05/28/18 04:45 Labs: Abnormal Lab Results - Last 24 Hours (Table) 05/28/18 05/28/18 05/28/18 Range/Units 04:55 11:39 17:17 PT (9.0-12.0) sec INR (<1.2) POC Glucose (mg/dL) 265 H 263 H (75-99) mg/dL Hemoglobin A1c 8.6 H (4.0-6.0) % 05/28/18 05/29/18 05/29/18 Range/Units 20:35 07:14 07:42 PT 21.4 H (9.0-12.0) sec INR 2.4 H (<1.2) POC Glucose (mg/dL) 222 H 198 H (75-99) mg/dL Hemoglobin A1c (4.0-6.0) % Microbiology - Last 24 Hours (Table) 05/28/18 04:45 Blood Culture - Preliminary Blood No Growth after 24 hours 05/28/18 04:55 Urine Culture - Preliminary Urine,Voided Assessment and Plan Assessment: Left foot plantar callus infection with purulent drainage Acute Left lower extremity cellulitis extending up to knee Diabetic left foot ulcer Diabetes type 2. Insulin-dependent Chronic atrial fibrillation on anticoagulation with Coumadin. Coumadin monitoring History of DVT Bilateral lower extremities venous stasis changes. 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 We will follow blood cultures and ID consult. Follow up wound cultures. Continue with Coumadin dosing and blood sugar control. Pain management and further recommendations based on the clinical course. Prognosis is guarded with multiple medical problems and comorbid conditions. Time with Patient: Greater than 30
--- NOTE | 2018-05-31 00:54 | P.PN ---
Subjective Progress Note Date: 05/30/18 Principal diagnosis: Left lower extremities cellulitis Patient is a 62-year-old male with a known history of diabetes type 2, chronic atrial fibrillation on anticoagulation with Coumadin, history of DVT and other multiple medical problems including morbid obesity came to ER with complaints of left lower activity swelling and redness worsening for the past 2 days. Patient has prior history of right lower extremity swelling and cellulitis previously. Patient does have history of left second and third toe amputation. He states that on Monday he noticed some redness about mid calf and some swelling in his left calf which was worse than his baseline. Patient states that by the end of the day he noted that the redness had extended up to his entire calf just below his knee and the swelling had progressively worsened. He did have some pain with standing but was still able to ambulate. Patient thought the edema in his lower extremity may be related to walking around all day so he went to bed with his leg elevated. However he woke around 2 AM with subjective fever, chills and sweating. He noticed the redness and continued to spread and the edema has not improved at all with laying flat. That time he decided to come to the ER for further evaluation. 05/29/2018 Patient's left lower the redness is improving. Otherwise patient was having some pulling drainage from the left great toe medial aspect of removing callus. Wound culture was sent. Currently on IV antibiotics. ID is following. Vascular surgery was consulted for further evaluation. Patient does have a history of left second and third toe amputation previously. No fever no chills. No other acute overnight issues. 05/30/2018 Patient denied any fever or chills. Leg swelling and redness is improving. Patient is still having draining from callus on the left foot. Vascular surgery was consulted for debridement and deep wound cultures. Continued on broad-spectrum antibiotics. ID is following. All other review of systems negative except the above Current medications reviewed Objective - Vital Signs Vital signs: Vital Signs Temp 97.6 F 05/30/18 22:39 Pulse 90 05/30/18 22:39 Resp 18 05/30/18 22:39 BP 120/67 05/30/18 22:39 Pulse Ox 95 05/30/18 22:39 Intake & Output 05/30/18 05/30/18 05/31/18 06:59 18:59 06:59 Output Total 500 Balance -500 Output: Urine 500 Other: # Voids 2 3 1 # Bowel Movements 0 - Exam PHYSICAL EXAMINATION: Patient is lying in the bed comfortably, no acute distress, awake alert and oriented.. HEENT: Normocephalic. Neck is supple. Pupils reactive. Nostrils clear. Oral cavity is moist. Ears reveal no drainage. Neck reveals no JVD, carotid bruits, or thyromegaly. CHEST EXAMINATION: Trachea is central. Symmetrical expansion. Lung hernandez clear to auscultation and percussion. CARDIAC: Normal S1, S2 with no gallops. No murmurs ABDOMEN: Soft. Bowel sounds normal. No organomegaly. No abdominal bruits. Extremities: Left lower extremities swelling and redness up to knee. Plantar callus infection with purulent drainage. No clubbing or cyanosis Neurologically awake, alert, oriented x3 with well-coordinated movements. No focal deficits noted Skin: No rash or skin lesions. Psychiatric: Coperative. Nonsuicidal Musculoskeletal: No joint swelling or deformity. Normal range of motion. - Labs CBC & Chem 7: 05/28/18 04:45 05/28/18 04:45 Labs: Abnormal Lab Results - Last 24 Hours (Table) 05/30/18 05/30/18 05/30/18 Range/Units 05:14 07:01 12:28 PT 23.0 H (9.0-12.0) sec INR 2.6 H (<1.2) POC Glucose (mg/dL) 191 H 204 H (75-99) mg/dL 05/30/18 05/30/18 Range/Units 17:22 21:03 PT (9.0-12.0) sec INR (<1.2) POC Glucose (mg/dL) 229 H 203 H (75-99) mg/dL Microbiology - Last 24 Hours (Table) 05/28/18 04:45 Blood Culture - Preliminary Blood No Growth after 48 hours 05/29/18 09:30 Gram Stain - Preliminary Toe - Left First Wound Culture - Preliminary Assessment and Plan Assessment: Left foot plantar callus infection with purulent drainage Acute Left lower extremity cellulitis extending up to knee Diabetic left foot ulcer Diabetes type 2. Insulin-dependent Chronic atrial fibrillation on anticoagulation with Coumadin. Coumadin monitoring History of DVT Bilateral lower extremities venous stasis changes. 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 We will follow blood cultures and ID consult. Follow up wound cultures. Continue with Coumadin dosing and blood sugar control. Pain management and further recommendations based on the clinical course. Prognosis is guarded with multiple medical problems and comorbid conditions. Time with Patient: Greater than 30
[2018-05-31] MEDS: VANCOMYCIN 2,000 MG in SODIUM CHLORIDE 0.9% 500 ML IVPB SCH (06:01)
[2018-05-31 06:59] LABS: Glucose,Whole Blood 197 mg/dL (75-99)
[2018-05-31 07:56] LABS: Basophils # (A) 0.1 k/uL (0-0.2); Basophils % (A) 1 %; Eosinophils # (A) 0.2 k/uL (0-0.7); Eosinophils % (A) 3 %; HCT 35.3 % (39.0-53.0); HGB 11.7 gm/dL (13.0-17.5); Lymphocytes # (A) 1.3 k/uL (1.0-4.8); Lymphocytes % (A) 17 %; MCH 29.5 pg (25.0-35.0); MCHC 33.1 g/dL (31.0-37.0); MCV 89.2 fL (80.0-100.0); Monocytes # (A) 0.4 k/uL (0-1.0); Monocytes % (A) 6 %; Neutrophils # (A) 5.1 k/uL (1.3-7.7); Neutrophils % (A) 71 %; Platelet Count 173 k/uL (150-450); RBC 3.96 m/uL (4.30-5.90); RDW 13.6 % (11.5-15.5); WBC 7.3 k/uL (3.8-10.6)
[2018-05-31 08:04] LABS: INR 2.2 (<1.2); Prothrombin Time 19.7 sec (9.0-12.0)
[2018-05-31 08:08] LABS: Anion Gap 8 mmol/L; Blood Urea Nitrogen 11 mg/dL (9-20); Carbon Dioxide 29 mmol/L (22-30); Chloride 103 mmol/L (98-107); Glucose 186 mg/dL (74-99); Potassium 3.6 mmol/L (3.5-5.1); Sodium 140 mmol/L (137-145)
[2018-05-31] MEDS: INSULIN ASPART 100 UNIT/ML 1 ML 10 ML VIAL SQ SCH ×4 (08:08→20:55)
[2018-05-31] MEDS: METOPROLOL TARTRATE 50 MG TAB PO SCH ×2 (08:08→20:54)
[2018-05-31] MEDS: metFORMIN 500 MG TAB PO SCH ×2 (08:09→17:55)
[2018-05-31] MEDS: LISINOPRIL 5 MG TAB PO SCH (08:09)
[2018-05-31] MEDS: FUROSEMIDE 80 MG TAB PO SCH (08:09)
[2018-05-31] MEDS: MULTIVITAMINS, THERA 1 EACH TAB PO SCH (08:10)
[2018-05-31] MEDS: CHOLECALCIFEROL 1,000 UNIT TAB PO SCH (08:11)
[2018-05-31] MEDS: PIPERACILLIN-TAZOBACTAM 3.375 GM in DEXTROSE/WATER 1 50ML.BAG IVPB SCH (08:14)
[2018-05-31] MEDS: POTASSIUM CHLORIDE ER 20 MEQ TAB.ER PO SCH (08:53)
[2018-05-31] MEDS: GABAPENTIN 400 MG CAP PO SCH ×2 (08:53→20:54)
[2018-05-31 12:31] LABS: Glucose,Whole Blood 233 mg/dL (75-99)
--- NOTE | 2018-05-31 15:12 | PN ---
PROGRESS NOTE DATE OF SERVICE: 05/31/2018 REASON FOR FOLLOWUP: Left diabetic foot infection with cellulitis. INTERVAL HISTORY: The patient is currently afebrile. He is breathing comfortably. Denies having any chest pain. No cough, no abdominal pain. The left leg swelling and redness is improved, no drainage. PHYSICAL EXAMINATION: Blood pressure is 121/74 with a pulse of 84, temperature 98.4. He is 94% on room air. General description is a middle-aged male up in the bed, in no distress. RESPIRATORY SYSTEM: Unlabored breathing, clear to auscultation anteriorly. HEART: S1, S2. Regular rate and rhythm. ABDOMEN: Soft, no tenderness. Left leg redness has decreased. He still has a blister on the plantar aspect of his left foot. LABS: Hemoglobin is 11.7, white count of 7.3, creatinine 0.76. Culture has been negative. DIAGNOSTIC IMPRESSION AND PLAN: Patient with left lower extremity cellulitis, initiating factor is likely the callus on the plantar aspect. The patient did have a blister. Surgery saw the patient, recommended against removal of this infected callus as no resistant organism has been grown. We will discontinue vancomycin, Zosyn, start the patient on Unasyn and if the patient continues to improve, to finish therapy with oral Augmentin. Continue supportive care. MMODL / IJN: [id number] /
[2018-05-31] MEDS: AMPICILLIN-SULBACTAM 3 GM in SODIUM CHLORIDE 0.9% 100 ML IVPB SCH ×2 (16:24→23:03)
[2018-05-31 17:33] LABS: Glucose,Whole Blood 235 mg/dL (75-99)
[2018-05-31] MEDS: WARFARIN 2 MG TAB PO SCH (17:56)
[2018-05-31 20:49] LABS: Glucose,Whole Blood 193 mg/dL (75-99)
[2018-05-31] MEDS: ATORVASTATIN 10 MG TAB PO SCH (20:54)
[2018-05-31] MEDS: INSULIN DETEMIR 100 UNIT/ML 10 ML VIAL SQ SCH (20:55)
[2018-05-31 23:12] VITALS: RESP 16
[2018-06-01] MEDS: AMPICILLIN-SULBACTAM 3 GM in SODIUM CHLORIDE 0.9% 100 ML IVPB SCH ×3 (05:36→17:19)
[2018-06-01 05:50] VITALS: PULSE 75
[2018-06-01 07:39] LABS: Glucose,Whole Blood 177 mg/dL (75-99)
[2018-06-01] MEDS: INSULIN ASPART 100 UNIT/ML 1 ML 10 ML VIAL SQ SCH ×3 (07:44→17:19)
[2018-06-01] MEDS: METOPROLOL TARTRATE 50 MG TAB PO SCH (07:44)
[2018-06-01] MEDS: FUROSEMIDE 80 MG TAB PO SCH (07:44)
[2018-06-01] MEDS: metFORMIN 500 MG TAB PO SCH ×2 (07:44→17:21)
[2018-06-01] MEDS: GABAPENTIN 400 MG CAP PO SCH (07:45)
[2018-06-01] MEDS: POTASSIUM CHLORIDE ER 20 MEQ TAB.ER PO SCH (07:45)
[2018-06-01] MEDS: LISINOPRIL 5 MG TAB PO SCH (07:45)
[2018-06-01 09:37] LABS: INR 1.6 (<1.2); Prothrombin Time 14.6 sec (9.0-12.0)
[2018-06-01 09:51] LABS: Calcium 9.2 mg/dL (8.4-10.2); Potassium 3.9 mmol/L (3.5-5.1)
[2018-06-01] MEDS: MULTIVITAMINS, THERA 1 EACH TAB PO SCH (12:34)
[2018-06-01] MEDS: CHOLECALCIFEROL 1,000 UNIT TAB PO SCH (12:35)
[2018-06-01 12:53] LABS: Glucose,Whole Blood 252 mg/dL (75-99)
--- NOTE | 2018-06-01 13:46 | PN ---
PROGRESS NOTE DATE OF SERVICE: 06/01/2018 REASON FOR FOLLOWUP: Left leg cellulitis. INTERVAL HISTORY: The patient is currently afebrile. He is breathing comfortably. Denies having any chest pain or any cough. No abdominal pain. Overall swelling and redness to the left leg has improved. No drainage from his left foot wound. PHYSICAL EXAMINATION: On examination, blood pressure 112/59 with a pulse of 75, temperature 98.8. He is 92% on room air. General description is a middle-aged male lying in bed in no distress. RESPIRATORY SYSTEM: Unlabored breathing, clear to auscultation anteriorly. HEART: S1, S2. Regular rate and rhythm. ABDOMEN: Soft, no tenderness. Left leg redness has improved, no drainage. LABS: BUN of 15, creatinine 1.09. DIAGNOSTIC IMPRESSION AND PLAN: Patient with left lower extremity cellulitis in a patient who did have diffuse swelling and redness. He did have small infected callus on the plantar aspect of the left foot. Culture from the same has been negative. Did well on Unasyn antibiotic, will be transitioned to Augmentin for 10 days and close outpatient followup. MMODL / IJN: [id number] /
[2018-06-01 14:44] VITALS: BP 125/77; TEMP 98.4
[2018-06-01 17:13] LABS: Glucose,Whole Blood 201 mg/dL (75-99)
[2018-06-01] MEDS: WARFARIN 2 MG TAB PO SCH (17:21)
== END 2018-06-01 19:17 | disposition home or self-care (01) | DRG 638 ==
LOC: EC 04:16 → 4MS4W 05:53
PROVIDERS: ADMIT Hospitalist; ATTEND Hospitalist
DX: E11.628 Type 2 diabetes mellitus with other skin complications (principal); L03.116 Cellulitis of left lower limb; Z68.42 Body mass index [BMI] 45.0-49.9, adult; E11.42 Type 2 diabetes mellitus with diabetic polyneuropathy; E11.621 Type 2 diabetes mellitus with foot ulcer; E66.01 Morbid (severe) obesity due to excess calories; I11.0 Hypertensive heart disease with heart failure; I50.9 Heart failure, unspecified; E11.65 Type 2 diabetes mellitus with hyperglycemia; I48.2 Chronic atrial fibrillation; L97.529 Non-pressure chronic ulcer of other part of left foot with unspecified severity; L84 Corns and callosities; I87.8 Other specified disorders of veins; E78.5 Hyperlipidemia, unspecified; Z79.4 Long term (current) use of insulin; Z79.01 Long term (current) use of anticoagulants; Z79.899 Other long term (current) drug therapy; Z89.429 Acquired absence of other toe(s), unspecified side; Z86.718 Personal history of other venous thrombosis and embolism; Z87.442 Personal history of urinary calculi; Z90.49 Acquired absence of other specified parts of digestive tract; Z86.59 Personal history of other mental and behavioral disorders; Z82.5 Family history of asthma and other chronic lower respiratory diseases; Z83.3 Family history of diabetes mellitus; Z80.3 Family history of malignant neoplasm of breast
CPT/HCPCS: 36415; 80048; 80053; 80202; 81001; 83036; 83605; 85025; 85610; 85730; 87040; 87070; 87075; 87086; 87205; 93005; 94760; 96365; 96367; 99284

== ENCOUNTER 2019-03-27 08:18 | Day surgery (SDC) | payer MEDICARE ==
[2019-03-25 09:30] VITALS: BMI 48.4
[~2019-03-27 08:18] MED LIST: DEXAMETHASONE SOD PHOSPHATE 10 MG/ML 1 ML VIAL IV ONE; HYDROmorphone 0.5 MG/0.5 ML SYRINGE IVP PRN; LACTATED RINGERS 1,000 ML IV SCH; LIDOCAINE 1% 20 ML VIAL (10MG/ML) FOR IV START INTRADERMA PRN; ONDANSETRON 4 MG/2 ML VIAL IVP ONE; SCOPOLAMINE 1.5MG/72HR PATCH TRANSDERM ONE; ceFAZolin 3 GM in SODIUM CHLORIDE 0.9% 100 ML IVPB ONE
[2019-03-27 09:20] LABS: Glucose,Whole Blood 177 mg/dL (75-99)
[2019-03-27] MEDS ORDERED: fentaNYL (PF) 50 MCG/ML 2 ML AMP ONE (10:53)
[2019-03-27] MEDS ORDERED: MIDAZOLAM 2 MG/2 ML VIAL ONE (10:53)
[2019-03-27] MEDS ORDERED: GLYCOPYRROLATE 0.2 MG/ML 2 ML VIAL ONE (10:53)
[2019-03-27] MEDS ORDERED: LIDOCAINE 1% INJ 10MG/ML (20 ML MDV) ONE (10:53)
[2019-03-27] MEDS ORDERED: ROCURONIUM BROMIDE 10 MG/ML 10 ML VIAL IV ONE (10:53)
[2019-03-27] MEDS ORDERED: SUCCINYLCHOLINE CHLORIDE 100 MG/5 ML SYR IV ONE (10:53)
[2019-03-27] MEDS ORDERED: NEOSTIGMINE 1 MG/ML 10 ML VIAL ONE (10:53)
[2019-03-27] MEDS ORDERED: PROPOFOL 10 MG/ML 20 ML VIAL IV ONE (10:53)
[2019-03-27] MEDS ORDERED: PHENYLEPHRINE-0.9% NACL SYG 1 MG/10 ML SYRINGE ONE (10:53)
[2019-03-27] MEDS ORDERED: BUPIVACAINE (PF) 0.5% 30 ML VIAL SQ ONE ×2 (11:34→11:52)
[2019-03-27] MEDS ORDERED: LACTATED RINGERS 1,000 ML IV ONE (11:42)
--- NOTE | 2019-03-27 12:09 | P.OP ---
Date of Procedure: 03/27/19 Preoperative Diagnosis: 1. Recurrent left neuropathic ulcer under the plantar aspect of the first metatarsal head 2. Left Achilles tendon contracture 3. History of type 2 diabetes with peripheral neuropathy and prior left second and third toe amputations 4. BMI 49.3 Postoperative Diagnosis: Same Procedure(s) Performed: 1. Left peroneus longus to peroneus brevis tendon transfer 2. Left percutaneous tendo Achilles lengthening (Alina triple hemisection) Anesthesia: RAND Surgeon: Ralf Wynne Project Management Intern #1: Aki Richardson Estimated Blood Loss (ml): 5 IV fluids (ml): 500 Pathology: none sent Condition: stable Disposition: PACU Indications for Procedure: The patient is a very pleasant 63-year-old male with a medical history significant for poorly controlled type 2 diabetes and peripheral neuropathy who was sent to my office from the wound center with a recurrent plantar ulcer under the first metatarsal head. He had an MRI which showed no evidence of osteomyelitis or deep infection. He had failed a lengthy course of nonsurgical wound care including local wound care and offloading. I met with the patient's discuss surgical lengthening to help get the ulcer to heal. Clinically the patient had a global tendo Achilles tendon contracture. He also had a contracted peroneus longus. I reviewed the orthopedic literature which suggested that a gastrocnemius recession or tendo Achilles lengthening and peroneus longus to brevis tendon transfer had high rates of getting plantar forefoot ulcers under the first metatarsal head to heal. We discussed the potential risks and complications including but not limited to risk of anesthesia, superficial infection, deep infection, persistent or worsening ulcer requiring further surgery, weakness, chronic pain, chronic swelling, postoperative medical complications, and possibly loss of life or limb. The patient voiced his understanding of these complications particularly the risk of recurrence or worsening of the ulcer requiring further surgery including amp utation. He provided his verbal and written consent to go forward with surgery. Description of Procedure: The patient was identified and operative holding and the correct left leg was marked with my initials. I reviewed the consent form with the patient and his sister. All their questions were answered. The patient was then brought back to the operating room by anesthesia. He was positioned on the OR table where general anesthetic and preoperative and Vioxx were given. A tourniquet was applied to the proximal aspect of the left leg. All bony prominences were well- padded. The left leg was then prepped and draped in standard sterile fashion. Prior to starting surgery timeout was performed identifying the correct patient, operative extremity, and procedure. The patient's leg was then elevated, exsanguinated with an Esmarch bandage, and the tourniquet was inflated to 300 mmHg. I began by performing the peroneus longus to brevis tendon transfer. A 5 cm incision was marked out over the retro-fibular aspect of the distal fibula. Skin incision was made with a scalpel and dissection was carried down carefully through the subcutaneous tissue. The peroneal tendon sheath was incised longitudinally in line with the skin incision. I identified the peroneus brevis directly posterior to the fibula. The peroneus longus was identified posterior to the brevis. I verified that I had the longest by pulling on the tendon and watching the first metatarsal plantarflex. The peroneus longus was then sharply released distally in the wound. It was then transferred to the peroneus brevis using a Pulvertaft weave and was secured using a [id number] 0 Vicryl. The wound was then thoroughly irrigated and closed in layers. Attention was then turned to the Achilles tendon. 3 stab incisions were made starting 2 cm proximal to the insertion of the posterior tuberosity with 2 cm between each incision. The distal and proximal incision were used to release the medial 50% of the tendon and the middle incision was used to release the lateral 50% of the tendon. A gentle dorsiflexion force was applied over 1 minute to allow gradual controlled lengthening. Following this I was able to dorsiflex the ankle past neutral. Single interrupted nylon sutures were placed followed by sterile dressing. The tourniquet was let down for total tourniquet time of 13 minutes. The patient was placed in an Hamzah wrap after the drapes were taken down, extubated, and transferred to recovery without the procedure well. Plan: The patient is going to weight-bear as tolerated in a boot. He can make a surgical dressing in place for 48 hours. After 48 hours he can remove his surgical dressing and get his incision wet. He is to keep his incisions covered with sterile gauze or Band-Aids. He will continue local wound care under the direction of the wound Center.
[2019-03-27 12:16] VITALS: RESP 18; TEMP 97.9
[2019-03-27 13:10] LABS: Glucose,Whole Blood 191 mg/dL (75-99)
[2019-03-27 15:44] VITALS: BP 138/78; PULSE 82
== END 2019-03-27 15:43 | disposition home or self-care (01) ==
LOC: OR 08:18
PROVIDERS: ATTEND Orthopaedic Surgery
DX: E11.621 Type 2 diabetes mellitus with foot ulcer (principal); L97.521 Non-pressure chronic ulcer of other part of left foot limited to breakdown of skin; M67.02 Short Achilles tendon (acquired), left ankle; M62.462 Contracture of muscle, left lower leg; E11.42 Type 2 diabetes mellitus with diabetic polyneuropathy; E11.65 Type 2 diabetes mellitus with hyperglycemia; Z89.422 Acquired absence of other left toe(s); I10 Essential (primary) hypertension; E78.5 Hyperlipidemia, unspecified; H91.90 Unspecified hearing loss, unspecified ear; Z87.891 Personal history of nicotine dependence; Z97.3 Presence of spectacles and contact lenses; Z79.4 Long term (current) use of insulin; Z79.01 Long term (current) use of anticoagulants; Z79.891 Long term (current) use of opiate analgesic; Z79.899 Other long term (current) drug therapy; Z87.442 Personal history of urinary calculi
CPT/HCPCS: 27690; 27685; J2250; J1100; J2710; J0690; J2405; J2001; J3010; J2370; J0330; J2704

== ENCOUNTER → 2022-04-19 | Outpatient (CLI) | payer MEDICARE ==
--- NOTE | 2022-04-19 08:18 | US ---
EXAMINATION TYPE: US duplex aorta DATE OF EXAM: 04/19/2022 COMPARISON: Correlation prior CT 05/11/2017 CLINICAL HISTORY: 66-year-old male I71.4 AAA without rupture TECHNIQUE: Multiple sonographic images of the kidneys and bladder are obtained. FINDINGS: EXAM MEASUREMENTS: Abdominal Aorta: Proximal: 1.9 x 2.4 cm Mid: 2.5 x 2.9 cm Distal: 2.8 x 3.6 cm Bifurcation: BERLIN Trans=2.6 cm ISA Trans=2.2 cm Supply Manager notes: Prox and Mid Aorta areas were limited due to overlying bowel gas. Distal Aorta moise s. >3 cm trans IMPRESSION: 1. Distal AAA measuring up to 3.6 cm (versus 3.3 cm in 2017). 2. Ectatic mid abdominal aorta at 2.9 cm. 3. The right and left common iliac arteries are also aneurysmal measuring up to 2.6 and 2.2 cm, respe ctively (these measurements have increased compared to 1.8 cm on the patient's 2017 CT).
== END | disposition home or self-care (01) ==
LOC: RADUSWWP 06:47
PROVIDERS: ATTEND Family Medicine
DX: I71.4 Abdominal aortic aneurysm, without rupture (principal)
CPT/HCPCS: 93979

== ENCOUNTER → 2024-05-17 | Outpatient (CLI) | payer MEDICARE ==
--- NOTE | 2024-06-24 10:01 | MR ---
MRI right foot without contrast HISTORY: Right foot pain COMPARISON: None. TECHNIQUE: Multiecho multiplanar images of the right foot were obtained. FINDINGS: There is no fracture. There is mild edema in the first metatarsal but no discrete fracture. There is mild osteophytic change of the first MTP joint. IMPRESSION: 1. No fracture. 2. 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 The tendons and tendon sheaths of the flexor, extensor and peroneal tendons are intact. Impression: 1. No bone contusion or fracture. 2. No tendinous injury. 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
== END | disposition home or self-care (01) ==
LOC: RADMRIMAIN 17:57
PROVIDERS: ATTEND Podiatrist Foot & Ankle Surgery
DX: L97.512 Non-pressure chronic ulcer of other part of right foot with fat layer exposed (principal); M86.671 Other chronic osteomyelitis, right ankle and foot; M19.071 Primary osteoarthritis, right ankle and foot; R60.0 Localized edema

== ENCOUNTER → 2024-09-23 | Outpatient (CLI) | payer MEDICARE ==
--- NOTE | 2024-09-23 11:38 | XR ---
EXAMINATION TYPE: XR abdomen 1V DATE OF EXAM: 09/23/2024 COMPARISON: NONE CLINICAL INDICATION: Male, 68 years old with history of R319 HEMATURIA; TECHNIQUE: XR abdomen 1V views of the abdomen. FINDINGS: The osseous structures are intact. The bowel gas pattern is nonspecific. Hypertrophic and degenerati ve change of the spine. There is bilateral hypertrophic hip arthropathy. Calcifications in the pelvis likely vascular. Surgical clips in the right upper quadrant. Punctate calcifications overlying the b ilateral kidneys. IMPRESSION: 1. Punctate calcifications overlying the bilateral kidneys suspicious for renal calcifications. [facility], , 09/23/2024 11:36 AM
== END | disposition home or self-care (01) ==
LOC: RADXRYALE 11:12
PROVIDERS: ATTEND Physician Assistant Medical
DX: N28.89 Other specified disorders of kidney and ureter (principal); R31.9 Hematuria, unspecified
CPT/HCPCS: 74018

== ENCOUNTER → 2024-10-03 | Outpatient (CLI) | payer MEDICARE ==
--- NOTE | 2024-10-03 14:35 | BD ---
EXAMINATION TYPE: Axial Bone Density DATE OF EXAM: 10/03/2024 CLINICAL HISTORY: 68 years old Male. ICD-10 CODE: M89.9 DISORDER OF BONE, UNSPECIFIED , Additional H istory: Height: 67 Weight: 292 FRAX RISK QUESTIONS: Family History (Parent hip fracture): no History of Fracture in Adulthood: no Secondary Osteoporosis: no RISK FACTORS HISTORY OF: Surgery to C-Spine: yes When: 2009 MEDICATIONS: Thyroid Medications: no Osteoporosis Medications: no EXAM MEASUREMENTS: Bone mineral densitometry was performed using the [employer] System. Bone mineral density as measured about the Lumbar spine is: ----- L1-L4(G/cm2): 2.228 T Score Values are as follows: ----- L1: 5.7 ----- L2: 5.1 ----- L3: 10.0 ----- L4: 12.7 ----- L1-L4: 8.7 Z Score Values are as follows: ----- L1: 5.3 ----- L2: 4.5 ----- L3: 9.5 ----- L4: 12.2 ----- L1-L4: 8.2 Bone mineral density baseline Bone mineral density about the R hip (g/cm2): 1.361 Bone mineral density about the L hip (g/cm2): 1.298 T Score values are as follows: -----R Neck: 1.9 -----L Neck: 0.4 -----R Total: 2.8 -----L Total: 2.3 Z Score values are as follows: -----R Neck: 2.5 -----L Neck: 0.9 -----R Total: 2.1 -----L Total: 1.6 Bone mineral density baseline FRAX%s: The graph provided illustrates a 3.7% chance for a major osteoporotic fx and a 0.3% chance fo r the hips probability for fx in 10 years time. IMPRESSION: Normal (Values between +1 and -1 indicate normal bone mass). Consider repeating this study in 5 year s or sooner if there is some new clinical indication. NOTE: T-SCORE=SD OF THE YOUNG ADULT MEAN. [facility], , 10/03/2024 2:32 PM
== END | disposition home or self-care (01) ==
LOC: RADBDWWP 07:50
PROVIDERS: ATTEND Family Medicine
DX: M89.9 Disorder of bone, unspecified (principal)
CPT/HCPCS: 77080